=== PATIENT | female | born 1965 | race Caucasian/White ===

== ENCOUNTER → 2016-05-29 | Outpatient (CLI) | payer OTHER ==
--- NOTE | 2016-05-30 13:52 | MM ---
Reason for exam: screening (asymptomatic). Last mammogram was performed 2 years and 7 months ago. History: Patient is postmenopausal. Physical Findings: A clinical breast exam by your physician is recommended on an annual basis and results should be correlated with mammographic findings. MG Screening Mammo w CAD Bilateral CC and MLO view(s) were taken. Prior study comparison: October 12, 2013, bilateral MG screening mammo w CAD. May 29, 2005, left diagnostic mammogram w/CAD. The breast tissue is heterogeneously dense. This may lower the sensitivity of mammography. Finding: There are typically benign round, diffuse and grouped calcifications in both breasts. There is no discrete abnormality. ASSESSMENT: Benign, BI-RAD 2 RECOMMENDATION: Routine screening mammogram of both breasts in 1 year.
== END | disposition home or self-care (01) ==
LOC: RADMAMWWP 10:58
PROVIDERS: ATTEND Family Medicine
DX: Z12.31 Encounter for screening mammogram for malignant neoplasm of breast (principal)

== ENCOUNTER 2016-08-20 08:39 | Emergency (ER) | payer OTHER ==
--- NOTE | 2016-08-20 09:12 | ED ---
Dizziness HPI - General Chief Complaint: Dizziness Stated Complaint: Tingling in face,dizzy Time Seen by Provider: 08/20/16 08:58 Source: patient, family, RN notes reviewed Mode of arrival: wheelchair Limitations: no limitations - History of Present Illness Initial Comments: This is a 51-year-old female who states she had the onset of similar to be flulike symptoms with nausea vomiting 2 days ago she states she also had sweats with the dizziness some fevers and chills some rhinorrhea and a cough. She states this morning she felt profoundly dizzy with some facial numbness and dizziness after she became upright. She does admit to having decreased oral intake she does admit to being at bed rest for last day or so. She has no other complaints at this time she does states she was told she has coronary artery disease. She denies any chest pain at this time. No palpitations. MD Complaint: dizziness, lightheadedness, other - Related Data Home Medications Medication Instructions Recorded Confirmed Cholecalciferol (Vitamin D3) 10,000 unit PO DAILY 12/08/15 08/20/16 [Vitamin D3] Chlorthalidone [Hygroton] 25 mg PO DAILY 08/20/16 08/20/16 FLUoxetine HCL [PROzac] 40 mg PO DAILY 08/20/16 08/20/16 Lisinopril [Prinivil] 5 mg PO DAILY 08/20/16 08/20/16 Phenylephrine/Dm/Acetaminop/GG 30 ml PO BID PRN 08/20/16 08/20/16 [Vicks Dayquil Severe Cold-Flu] Previous Rx's Medication Instructions Recorded Ibuprofen [Motrin] 600 mg PO Q6HR PRN #30 tab 03/07/15 Oseltamivir [Tamiflu] 75 mg PO Q12HR #10 cap 08/20/16 Potassium Chloride [Klor-Con 20] 20 meq PO DAILY #10 tab 08/20/16 Allergies Allergy/AdvReac Type Severity Reaction Status Date / Time No Known Allergies Allergy Verified 08/20/16 10:34 Review of Systems ROS Statement: Those systems with pertinent positive or pertinent negative responses have been documented in the HPI. ROS Other: All systems not noted in ROS Statement are negative. Past Medical History Past Medical History: GERD/Reflux, Hypertension Additional Past Medical History / Comment(s): anemia, MIGRAINE HEADACHES, History of Any Multi-Drug Resistant Organisms: None Reported Past Surgical History: Hysterectomy, Tubal Ligation Additional Past Surgical History / Comment(s): LAPAROSCOPIC EXAM, BUNION LEFT FOOT, Past Anesthesia/Blood Transfusion Reactions: Motion Sickness, Postoperative Nausea & Vomiting (PONV) Past Psychological History: Anxiety, Depression Smoking Status: Never smoker Past Alcohol Use History: None Reported Past Drug Use History: None Reported - Past Family History Mother Family Medical History: No Reported History General Exam - General Exam Comments Initial Comments: This is a well-developed well-nourished awake alert oriented 3 female Limitations: no limitations General appearance: alert, anxious Head exam: Present: atraumatic, normocephalic, normal inspection Eye exam: Present: normal appearance, PERRL, EOMI. Absent: scleral icterus, conjunctival injection, periorbital swelling ENT exam: Present: mucous membranes dry Neck exam: Present: normal inspection. Absent: tenderness, meningismus, lymphadenopathy Respiratory exam: Present: normal lung sounds bilaterally. Absent: respiratory distress, wheezes, rales, rhonchi, stridor Cardiovascular Exam: Present: normal rhythm, tachycardia, normal heart sounds. Absent: systolic murmur, diastolic murmur, rubs, gallop, clicks GI/Abdominal exam: Present: soft, normal bowel sounds. Absent: distended, tenderness, guarding, rebound, rigid Extremities exam: Present: normal inspection, full ROM, normal capillary refill. Absent: tenderness, pedal edema, joint swelling, calf tenderness Back exam: Present: normal inspection Neurological exam: Present: alert, oriented X3, CN II-XII intact Psychiatric exam: Present: normal affect, normal mood Skin exam: Present: warm, dry, intact, normal color. Absent: rash Course Vital Signs 08/20/16 08/20/16 08:52 10:18 Temperature 97.8 F 98.8 F Pulse Rate 108 H 76 Respiratory 20 18 Rate Blood Pressure 128/88 140/78 O2 Sat by Pulse 98 100 Oximetry EKG Findings - EKG Results: EKG: interpreted by MARÍA ELENA, sinus rhythm (Sinus rhythm a rate of 81 a SD interval 150 to QRS duration 90 QT/QTC of 364/422 evidence of biatrial enlargement artifact is present st-t wave changes.) Medical Decision Making - Medical Decision Making Patient did feel improved after initial treatment. She'll be receiving magnesium and potassium supplementation as well as Tamiflu she'll be discharged on appropriate medication she is a follow-up with her doctor return when necessary she was influenza type B positive - Lab Data Result diagrams: 08/20/16 09:15 08/20/16 09:15 Lab Results 08/20/16 08/20/16 08/20/16 Range/Units 09:15 09:15 09:15 WBC 4.4 (3.8-10.6) k/uL RBC 5.33 (3.80-5.40) m/uL Hgb 15.7 (11.4-16.0) gm/dL Hct 44.3 (34.0-46.0) % MCV 83.0 (80.0-100.0) fL MCH 29.4 (25.0-35.0) pg MCHC 35.3 (31.0-37.0) g/dL RDW 12.6 (11.5-15.5) % Plt Count 122 L (150-450) k/uL Neutrophils % 69 % Lymphocytes % 15 % Monocytes % 10 % Eosinophils % 0 % Basophils % 3 % Neutrophils # 3.0 (1.3-7.7) k/uL Lymphocytes # 0.6 L (1.0-4.8) k/uL Monocytes # 0.4 (0-1.0) k/uL Eosinophils # 0.0 (0-0.7) k/uL Basophils # 0.1 (0-0.2) k/uL Sodium 138 (137-145) mmol/L Potassium 2.9 L* (3.5-5.1) mmol/L Chloride 95 L (98-107) mmol/L Carbon Dioxide 26 (22-30) mmol/L Anion Gap 17 mmol/L BUN 17 (7-17) mg/dL Creatinine 0.90 (0.52-1.04) mg/dL Est GFR (MDRD) Af Amer >60 (>60 ml/min/1.73 sqM) Est GFR (MDRD) Non-Af >60 (>60 ml/min/1.73 sqM) Glucose 121 H (74-99) mg/dL Calcium 9.4 (8.4-10.2) mg/dL Magnesium 1.7 (1.6-2.3) mg/dL Total Bilirubin 1.0 (0.2-1.3) mg/dL AST 25 (14-36) U/L ALT 25 (9-52) U/L Alkaline Phosphatase 83 (38-126) U/L Total Creatine Kinase 28 L (30-135) U/L CK-MB (CK-2) <0.2 (0.0-2.4) ng/mL CK-MB (CK-2) Rel Index Troponin I <0.012 (0.000-0.034) ng/mL Total Protein 7.8 (6.3-8.2) g/dL Albumin 4.4 (3.5-5.0) g/dL Influenza Type A RNA (Not Detectd) Influenza Type B (PCR) (Not Detectd) 08/20/16 Range/Units 09:15 WBC (3.8-10.6) k/uL RBC (3.80-5.40) m/uL Hgb (11.4-16.0) gm/dL Hct (34.0-46.0) % MCV (80.0-100.0) fL MCH (25.0-35.0) pg MCHC (31.0-37.0) g/dL RDW (11.5-15.5) % Plt Count (150-450) k/uL Neutrophils % % Lymphocytes % % Monocytes % % Eosinophils % % Basophils % % Neutrophils # (1.3-7.7) k/uL Lymphocytes # (1.0-4.8) k/uL Monocytes # (0-1.0) k/uL Eosinophils # (0-0.7) k/uL Basophils # (0-0.2) k/uL Sodium (137-145) mmol/L Potassium (3.5-5.1) mmol/L Chloride (98-107) mmol/L Carbon Dioxide (22-30) mmol/L Anion Gap mmol/L BUN (7-17) mg/dL Creatinine (0.52-1.04) mg/dL Est GFR (MDRD) Af Amer (>60 ml/min/1.73 sqM) Est GFR (MDRD) Non-Af (>60 ml/min/1.73 sqM) Glucose (74-99) mg/dL Calcium (8.4-10.2) mg/dL Magnesium (1.6-2.3) mg/dL Total Bilirubin (0.2-1.3) mg/dL AST (14-36) U/L ALT (9-52) U/L Alkaline Phosphatase (38-126) U/L Total Creatine Kinase (30-135) U/L CK-MB (CK-2) (0.0-2.4) ng/mL CK-MB (CK-2) Rel Index Troponin I (0.000-0.034) ng/mL Total Protein (6.3-8.2) g/dL Albumin (3.5-5.0) g/dL Influenza Type A RNA Not Detected (Not Detectd) Influenza Type B (PCR) Detected H (Not Detectd) - Radiology Data Radiology results: report reviewed (I did review the imaging and reports no acute findings.), image reviewed Disposition Clinical Impression: Orthostatic hypotension, Influenza B, Dehydration, Hypokalemia, Dizziness Disposition: HOME SELF-CARE Condition: Good Instructions: Dizziness (ED), Influenza (ED), Dehydration (ED), Hypokalemia (ED ) Prescriptions: Oseltamivir [Tamiflu] 75 mg PO Q12HR #10 cap Potassium Chloride [Klor-Con 20] 20 meq PO DAILY #10 tab
[2016-08-20] MEDS: SODIUM CHLORIDE 0.9% 1,000 ML IV STA ×2 (09:23→09:24)
[2016-08-20 09:39] LABS: Basophils # (A) 0.1 k/uL (0-0.2); Basophils % (A) 3 %; CH 29.8; Eosinophils % (A) 0 %; HCT 44.3 % (34.0-46.0); HDW 2.55; HGB 15.7 gm/dL (11.4-16.0); Luc # (Auto) 0.15; Luc % (Auto) 4; Lymphocytes # (A) 0.6 k/uL (1.0-4.8); Lymphocytes % (A) 15 %; MCH 29.4 pg (25.0-35.0); MCHC 35.3 g/dL (31.0-37.0); Mean Platelet Volume 9.8; Monocytes # (A) 0.4 k/uL (0-1.0); Monocytes % (A) 10 %; Neutrophils % (A) 69 %; RBC 5.33 m/uL (3.80-5.40); RDW 12.6 % (11.5-15.5); WBC 4.4 k/uL (3.8-10.6); WBC (Perox) 4.37
--- NOTE | 2016-08-20 09:44 | XR ---
EXAMINATION TYPE: XR chest 2V DATE OF EXAM: 08/20/2016 9:36 AM COMPARISON: None HISTORY: Cough and weakness TECHNIQUE: Frontal and lateral views of the chest are obtained on 3 images. FINDINGS: There is no focal air space opacity, pleural effusion, or pneumothorax seen. The cardiac silhouette size is within normal limits. There are overlying cardiac leads. The osseous structures a re intact. IMPRESSION: No acute cardiopulmonary process.
[2016-08-20 09:55] LABS: Creatine Kinase 28 U/L (30-135)
[2016-08-20 09:56] LABS: ALT 25 U/L (9-52); AST 25 U/L (14-36); Alkaline Phosphatase 83 U/L (38-126); Anion Gap 17 mmol/L; Blood Urea Nitrogen 17 mg/dL (7-17); Calcium 9.4 mg/dL (8.4-10.2); Carbon Dioxide 26 mmol/L (22-30); Chloride 95 mmol/L (98-107); Glucose 121 mg/dL (74-99); Magnesium 1.7 mg/dL (1.6-2.3); Non-African American GFR(MDRD) >60 (>60 ml/min/1.73 sqM); Sodium 138 mmol/L (137-145); Total Protein 7.8 g/dL (6.3-8.2)
[2016-08-20 10:04] LABS: Potassium 2.9 mmol/L (3.5-5.1)
[2016-08-20 10:07] LABS: Creatine Kinase MB <0.2 ng/mL (0.0-2.4); Troponin I <0.012 ng/mL (0.000-0.034)
[2016-08-20] MEDS: MAGNESIUM SULFATE-D5W PMX 1 GM in DEXTROSE/WATER 1 100ML.BAG IVPB ONE (10:37)
[2016-08-20] MEDS: SODIUM CHLORIDE 0.9% 500 ML IV STA (10:42)
[2016-08-20] MEDS: OSELTAMIVIR 75 MG CAP PO STA (10:43)
[2016-08-20] MEDS: POTASSIUM CHLORIDE 20 MEQ, LIDOCAINE 2% INJ 20 MG in SODIUM CHLORIDE 0.9% 100 ML IVPB ONE (11:44)
[2016-08-20 12:00] VITALS: RESP 17
[2016-08-20 13:59] VITALS: BP 138/63; PULSE 63; TEMP 98.7
== END 2016-08-20 14:09 | disposition home or self-care (01) ==
LOC: EC 08:39
DX: I95.1 Orthostatic hypotension (principal); J10.1 Influenza due to other identified influenza virus with other respiratory manifestations; E86.0 Dehydration; E87.6 Hypokalemia; R00.0 Tachycardia, unspecified; I10 Essential (primary) hypertension; F41.9 Anxiety disorder, unspecified; F32.9 Major depressive disorder, single episode, unspecified; I25.10 Atherosclerotic heart disease of native coronary artery without angina pectoris; Z79.899 Other long term (current) drug therapy; Z86.69 Personal history of other diseases of the nervous system and sense organs
CPT/HCPCS: 99284; 96365; 96367; 96366; 96361; 36415; 93005; 80053; 82550; 82553; 83735; 84484; 85025; 87502; 71020; J2001; J3480; J3475

== ENCOUNTER → 2016-11-14 | Outpatient (CLI) | payer OTHER ==
[2016-11-14 13:36] LABS: Non-African American GFR(MDRD) >60 (>60 ml/min/1.73 sqM)
== END | disposition home or self-care (01) ==
LOC: LABWHC1 13:15
PROVIDERS: ATTEND Family Medicine
DX: M54.5 Low back pain (principal)
CPT/HCPCS: 36415; 82565

== ENCOUNTER → 2016-11-15 | Outpatient (CLI) | payer OTHER ==
--- NOTE | 2016-11-15 09:35 | MR ---
MR lumbar spine wo/w con low back pain x3 weeks MultiHance Multiplanar, multiecho imaging of the lumbar spine was obtained without contrast on a 3 Josy magnet. REFERENCE:None. FINDINGS: Paraspinal soft tissues are normal. Vertebral body height and alignment are maintained. Cord signal is maintained. The conus ends normally at the level of the mid body of L2. At T12-L1, the intervertebral foramina are well maintained. There is no significant compressive disco selina. There is mild capsulitis within the facets. At L1-2, the intervertebral foramina are well maintained. There is no significant compressive discopa thy. There is mild hypertrophic change and capsulitis within the facets. At L2-3, the intervertebral foramina are well maintained. There is no significant compressive discopa thy. There is mild hypertrophic change and capsulitis within the facets. At L3-4, the intervertebral foramina are well maintained. There is a minimal bilobed disc displacemen t. There is mild hypertrophic change and capsulitis within the facets. At L4-5,there is a left paracentral disc protrusion/extrusion extending into the intervertebral candelario en on the left and causing significant intervertebral foraminal narrowing on the left. There is a dif fuse disc displacement. There is hypertrophic change and capsulitis within the facets. At L5-S1, the intervertebral foramina are well maintained. There is a diffuse disc displacement. Ther e are hypertrophic changes in the facets. IMPRESSION: 1. LEFT PARACENTRAL DISC PROTRUSION/EXTRUSION, L4-5 CAUSING LEFT-SIDED INTERVERTEBRAL FORAMINAL NARRO WING AND IMPINGING UPON THE EXITING L4 NERVE ROOT AND ALSO THE TRAVERSING L5 NERVE ROOT. 2. DIFFUSE FACET ARTHROPATHY.
== END | disposition home or self-care (01) ==
LOC: RADMRIMAIN 08:43
PROVIDERS: ATTEND Family Medicine
DX: M51.26 Other intervertebral disc displacement, lumbar region (principal); M99.73 Connective tissue and disc stenosis of intervertebral foramina of lumbar region; M46.96 Unspecified inflammatory spondylopathy, lumbar region
CPT/HCPCS: 72158; A9577

== ENCOUNTER 2017-06-21 15:33 | Emergency (ER) | payer OTHER ==
--- NOTE | 2017-06-21 16:41 | ED ---
General Adult HPI - General Chief complaint: Extremity Injury, Upper Stated complaint: facial & arm pain Time Seen by Provider: 06/21/17 16:23 Source: patient, RN notes reviewed Mode of arrival: ambulatory Limitations: no limitations - History of Present Illness Initial comments: Patient 52-year-old female who presents emergency room today with a chief complaint of symptoms of nausea vomiting diarrhea that started 4 days ago. She states that she had the symptoms for the first 2 days. States they have improved. She states she is feeling a numbness and tingling sensation to her face bilaterally and upper arms bilaterally that comes and goes. Currently not having the numbness and tingling at this time. She doesn't that she feels arm around the elbow and biceps area. Patient denies any injury or trauma. Also missed that she's felt some bruising sensation to her chest wall bilaterally. She again denies any injury. She denies any other complaints or symptoms at this time. Patient denies any recent fever, chills, shortness of breath, chest pain, back pain, dysuria or hematuria, constipation, headaches or visual changes , or any other complaints. - Related Data Home Medications Medication Instructions Recorded Confirmed Chlorthalidone [Hygroton] 25 mg PO DAILY 08/20/16 06/21/17 FLUoxetine HCL [PROzac] 40 mg PO DAILY 08/20/16 06/21/17 Ergocalciferol (Vitamin D2) 50,000 unit PO Q30D 06/21/17 06/21/17 [Vitamin D2] Omeprazole [PriLOSEC] 20 mg PO AC-BID 06/21/17 06/21/17 amLODIPine [Norvasc] 5 mg PO DAILY 06/21/17 06/21/17 busPIRone HCl [Buspar] 10 mg PO DAILY 06/21/17 06/21/17 Previous Rx's Medication Instructions Recorded Ibuprofen [Motrin] 600 mg PO Q6HR PRN #30 tab 03/07/15 Allergies Allergy/AdvReac Type Severity Reaction Status Date / Time No Known Allergies Allergy Verified 06/21/17 16:37 Review of Systems ROS Statement: Those systems with pertinent positive or pertinent negative responses have been documented in the HPI. ROS Other: All systems not noted in ROS Statement are negative. Past Medical History Past Medical History: GERD/Reflux, Hypertension Additional Past Medical History / Comment(s): anemia, MIGRAINE HEADACHES, vertigo History of Any Multi-Drug Resistant Organisms: None Reported Past Surgical History: Hysterectomy, Tubal Ligation Additional Past Surgical History / Comment(s): LAPAROSCOPIC EXAM, BUNION LEFT FOOT, Past Anesthesia/Blood Transfusion Reactions: Motion Sickness, Postoperative Nausea & Vomiting (PONV) Past Psychological History: Anxiety, Depression Smoking Status: Never smoker Past Alcohol Use History: None Reported Past Drug Use History: None Reported - Past Family History Mother Family Medical History: No Reported History General Exam - General Exam Comments Initial Comments: General: The patient is awake and alert, in no distress, and does not appear acutely ill. Eye: Pupils are equal, round and reactive to light, extra-ocular movements are intact. No nystagmus. There is normal conjunctiva bilaterally. No signs of icterus. Ears, nose, mouth and throat: There are moist mucous membranes and no oral lesions. Neck: The neck is supple, there is no tenderness or JVD. Cardiovascular: There is a regular rate and rhythm. No murmur, rub or gallop is appreciated. Respiratory: Lungs are clear to auscultation, respirations are non-labored, breath sounds are equal. No wheezes, stridor, rales, or rhonchi. Gastrointestinal: Soft, non-distended, non-tender abdomen without masses or organomegaly noted. There is no rebound or guarding present. No CVA tenderness. Musculoskeletal: Normal ROM, no tenderness. Strength 5/5. Sensation intact. Pulses equal bilaterally 2+. Neurological: A&O x 3. CN II-XII intact, There are no obvious motor or sensory deficits. Coordination appears grossly intact. Speech is normal. Skin: Skin is warm and dry and no rashes or lesions are noted. Psychiatric: Cooperative, appropriate mood & affect, normal judgment. Limitations: no limitations Course Vital Signs 06/21/17 06/21/17 15:44 16:50 Temperature 96.4 F L Pulse Rate 93 71 Respiratory 18 16 Rate Blood Pressure 135/71 148/85 O2 Sat by Pulse 100 96 Oximetry Medical Decision Making - Medical Decision Making Patient reexamined at this time shows no signs of distress. Patient's resting comfortably. Patient's EKG shows no acute changes. Patient's labs been reviewed are unremarkable. Patient is resting relatively. Has had similar symptoms in the past at this time feeling better after IV fluids. Patient will be discharged to follow-up family doctor tomorrow. Advised increased fluids. Advised return if symptoms increase or worsen appropriate concerns. - Lab Data Result diagrams: 06/21/17 16:45 06/21/17 16:45 Lab Results 06/21/17 06/21/17 06/21/17 Range/Units 16:45 16:45 16:45 WBC 6.8 (3.8-10.6) k/uL RBC 5.20 (3.80-5.40) m/uL Hgb 15.3 (11.4-16.0) gm/dL Hct 44.4 (34.0-46.0) % MCV 85.4 (80.0-100.0) fL MCH 29.5 (25.0-35.0) pg MCHC 34.5 (31.0-37.0) g/dL RDW 12.8 (11.5-15.5) % Plt Count 187 (150-450) k/uL Neutrophils % 68 % Lymphocytes % 20 % Monocytes % 8 % Eosinophils % 1 % Basophils % 0 % Neutrophils # 4.6 (1.3-7.7) k/uL Lymphocytes # 1.4 (1.0-4.8) k/uL Monocytes # 0.5 (0-1.0) k/uL Eosinophils # 0.1 (0-0.7) k/uL Basophils # 0.0 (0-0.2) k/uL PT (9.0-12.0) sec INR (<1.2) APTT (22.0-30.0) sec Sodium 142 (137-145) mmol/L Potassium 3.5 (3.5-5.1) mmol/L Chloride 98 (98-107) mmol/L Carbon Dioxide 30 (22-30) mmol/L Anion Gap 14 mmol/L BUN 14 (7-17) mg/dL Creatinine 0.83 (0.52-1.04) mg/dL Est GFR (MDRD) Af Amer >60 (>60 ml/min/1.73 sqM) Est GFR (MDRD) Non-Af >60 (>60 ml/min/1.73 sqM) Glucose 118 H (74-99) mg/dL Calcium 9.9 (8.4-10.2) mg/dL Total Bilirubin 1.1 (0.2-1.3) mg/dL AST 21 (14-36) U/L ALT 21 (9-52) U/L Alkaline Phosphatase 87 (38-126) U/L Total Creatine Kinase 27 L (30-135) U/L CK-MB (CK-2) <0.2 (0.0-2.4) ng/mL CK-MB (CK-2) Rel Index Troponin I <0.012 (0.000-0.034) ng/mL Total Protein 7.4 (6.3-8.2) g/dL Albumin 4.3 (3.5-5.0) g/dL 06/21/17 Range/Units 16:45 WBC (3.8-10.6) k/uL RBC (3.80-5.40) m/uL Hgb (11.4-16.0) gm/dL Hct (34.0-46.0) % MCV (80.0-100.0) fL MCH (25.0-35.0) pg MCHC (31.0-37.0) g/dL RDW (11.5-15.5) % Plt Count (150-450) k/uL Neutrophils % % Lymphocytes % % Monocytes % % Eosinophils % % Basophils % % Neutrophils # (1.3-7.7) k/uL Lymphocytes # (1.0-4.8) k/uL Monocytes # (0-1.0) k/uL Eosinophils # (0-0.7) k/uL Basophils # (0-0.2) k/uL PT 9.8 (9.0-12.0) sec INR 1.0 (<1.2) APTT 22.7 (22.0-30.0) sec Sodium (137-145) mmol/L Potassium (3.5-5.1) mmol/L Chloride (98-107) mmol/L Carbon Dioxide (22-30) mmol/L Anion Gap mmol/L BUN (7-17) mg/dL Creatinine (0.52-1.04) mg/dL Est GFR (MDRD) Af Amer (>60 ml/min/1.73 sqM) Est GFR (MDRD) Non-Af (>60 ml/min/1.73 sqM) Glucose (74-99) mg/dL Calcium (8.4-10.2) mg/dL Total Bilirubin (0.2-1.3) mg/dL AST (14-36) U/L ALT (9-52) U/L Alkaline Phosphatase (38-126) U/L Total Creatine Kinase (30-135) U/L CK-MB (CK-2) (0.0-2.4) ng/mL CK-MB (CK-2) Rel Index Troponin I (0.000-0.034) ng/mL Total Protein (6.3-8.2) g/dL Albumin (3.5-5.0) g/dL Disposition Clinical Impression: Nausea vomiting and diarrhea, Paresthesia Disposition: HOME SELF-CARE Condition: Good Instructions: Paresthesia (ED) Additional Instructions: Please follow-up with family doctor in the next 2 days. Please return to emergency room if the symptoms increase or worsen or for any other concerns. Referrals: Chaparro Horne MD [Primary Care Provider] - 1-2 days Time of Disposition: 18:27
[2017-06-21 16:51] VITALS: RESP 16
[2017-06-21 17:10] LABS: ALT 21 U/L (9-52); AST 21 U/L (14-36); Albumin 4.3 g/dL (3.5-5.0); Alkaline Phosphatase 87 U/L (38-126); Anion Gap 14 mmol/L; Blood Urea Nitrogen 14 mg/dL (7-17); Calcium 9.9 mg/dL (8.4-10.2); Carbon Dioxide 30 mmol/L (22-30); Chloride 98 mmol/L (98-107); Glucose 118 mg/dL (74-99); Potassium 3.5 mmol/L (3.5-5.1); Sodium 142 mmol/L (137-145); Total Bilirubin 1.1 mg/dL (0.2-1.3); Total Protein 7.4 g/dL (6.3-8.2)
--- NOTE | 2017-06-21 17:10 | XR ---
EXAMINATION TYPE: XR chest 2V DATE OF EXAM: 06/21/2017 COMPARISON: 08/20/2016 HISTORY: Nausea and vomiting TECHNIQUE: Frontal and lateral views of the chest are obtained. FINDINGS: There is no focal air space opacity, pleural effusion, or pneumothorax seen. The cardiac silhouette size is within normal limits. The osseous structures are intact. Minimal multilevel dege nerative changes of the thoracic spine and acromio clavicular joint on the right are seen. IMPRESSION: No acute cardiopulmonary process.
[2017-06-21 17:25] LABS: Basophils % (A) 0 %; Creatine Kinase 27 U/L (30-135); Eosinophils # (A) 0.1 k/uL (0-0.7); Eosinophils % (A) 1 %; HCT 44.4 % (34.0-46.0); HGB 15.3 gm/dL (11.4-16.0); Lymphocytes # (A) 1.4 k/uL (1.0-4.8); Lymphocytes % (A) 20 %; MCH 29.5 pg (25.0-35.0); MCHC 34.5 g/dL (31.0-37.0); MCV 85.4 fL (80.0-100.0); Mean Platelet Volume 8.5; Monocytes # (A) 0.5 k/uL (0-1.0); Monocytes % (A) 8 %; Neutrophils # (A) 4.6 k/uL (1.3-7.7); Neutrophils % (A) 68 %; Platelet Count 187 k/uL (150-450); RDW 12.8 % (11.5-15.5); WBC 6.8 k/uL (3.8-10.6)
[2017-06-21 17:29] LABS: Partial Thromboplastin Time 22.7 sec (22.0-30.0)
[2017-06-21 17:31] LABS: Prothrombin Time 9.8 sec (9.0-12.0)
[2017-06-21] MEDS ORDERED: SODIUM CHLORIDE 0.9% 1,000 ML IV STA (17:35)
[2017-06-21 17:37] LABS: Creatine Kinase MB <0.2 ng/mL (0.0-2.4); Troponin I <0.012 ng/mL (0.000-0.034)
[2017-06-21 18:35] VITALS: BP 157/73; PULSE 57; TEMP 98.4
== END 2017-06-21 18:55 | disposition home or self-care (01) ==
LOC: EC 15:33
DX: R19.7 Diarrhea, unspecified (principal); R11.2 Nausea with vomiting, unspecified; R20.2 Paresthesia of skin; I10 Essential (primary) hypertension; K21.9 Gastro-esophageal reflux disease without esophagitis; F32.9 Major depressive disorder, single episode, unspecified; F41.9 Anxiety disorder, unspecified; Z79.899 Other long term (current) drug therapy; Z86.69 Personal history of other diseases of the nervous system and sense organs
CPT/HCPCS: 36415; 71046; 80053; 82550; 82553; 84484; 85025; 85610; 85730; 93005; 96360; 99284

== ENCOUNTER → 2017-07-10 | Outpatient (CLI) | payer OTHER ==
--- NOTE | 2017-07-12 21:24 | MR ---
EXAMINATION TYPE: MR brain wo/w con DATE OF EXAM: 07/10/2017 COMPARISON: NONE HISTORY: 52-year-old female Tingling in face / Confusion TECHNIQUE: Multiplanar, multisequence images of the brain and brainstem were acquired before and aft er administration of 7.5 mL IV Gadavist. Diffusion weighted imaging is performed. FINDINGS: No evidence for acute infarction, hemorrhage, mass, mass effect, midline shift, herniation, effacemen t of basal cisterns, or extra-axial fluid collection. The ventricles and sulci are age-appropriate. Major intracranial flow voids are intact. T2/FLAIR weighted sequences show a solitary nonspecific 3 mm punctate focus of bright signal in the l eft parietal subcortical region. Midline structures demonstrate normal morphology. The craniocervical junction is normal. Post contrast images demonstrate no evidence of pathologic enhancement. Dural venous sinuses are pat ent. Mild mucosal thickening within the ethmoid air cells. Partial the left mastoid air cells. Globes are intact. IMPRESSION: 1. No acute intracranial abnormality seen. 2. Some trapped fluid in the left mastoid air cells. Correlate for any mastoid pain to exclude mastoi ditis.
== END | disposition home or self-care (01) ==
LOC: RADMRIMAIN 10:42
PROVIDERS: ATTEND Family Medicine
DX: H74.8X2 Other specified disorders of left middle ear and mastoid (principal); R20.2 Paresthesia of skin; R41.0 Disorientation, unspecified; Z86.59 Personal history of other mental and behavioral disorders
CPT/HCPCS: 70553; A9581

== ENCOUNTER → 2017-07-14 | Outpatient (CLI) | payer OTHER ==
--- NOTE | 2017-07-15 09:31 | MM ---
Reason for exam: screening (asymptomatic). Last mammogram was performed 1 year and 1 month ago. History: Patient is postmenopausal. Physical Findings: A clinical breast exam by your physician is recommended on an annual basis and results should be correlated with mammographic findings. MG Screening Mammo w CAD Bilateral CC and MLO view(s) were taken. Prior study comparison: May 29, 2016, bilateral MG screening mammo w CAD. October 12, 2013, bilateral MG screening mammo w CAD. The breast tissue is heterogeneously dense. This may lower the sensitivity of mammography. Finding: There are typically benign round, grouped/clustered calcifications in the left breast. There is no discrete abnormality. ASSESSMENT: Benign, BI-RAD 2 RECOMMENDATION: Routine screening mammogram of both breasts in 1 year.
== END ==
LOC: RADMAMWWP 09:59
PROVIDERS: ATTEND Family Medicine
DX: Z12.31 Encounter for screening mammogram for malignant neoplasm of breast (principal)
CPT/HCPCS: 77067

== ENCOUNTER 2017-12-27 18:51 | Observation (INO) | payer OTHER ==
[2017-12-27] MEDS ORDERED: NITROGLYCERIN OINT 1 INCH/GM PACKET TOPICAL STA (19:33)
[2017-12-27] MEDS ORDERED: ASPIRIN 81 MG PO STA (19:33)
--- NOTE | 2017-12-27 19:37 | ED ---
General Adult HPI - General Chief complaint: Chest Pain Stated complaint: CHEST DISCOMFORT Time Seen by Provider: 12/27/17 19:07 Source: patient, RN notes reviewed Mode of arrival: ambulatory Limitations: no limitations - History of Present Illness Initial comments: Patient is a pleasant 52-year-old female presenting to the emergency Department with chest discomfort. Onset of symptoms was yesterday after doing some cleaning. No history of similar symptoms previously. Discomfort is mild at this time. Patient does have some associated nausea. No associated dyspnea or diaphoresis. Patient also has some discomfort of her left neck. Patient states she noticed the neck discomfort she woke this morning. Patient states it hurts to push on her neck or turn her neck. Discomfort is left anterior neck. Chest discomfort is left sternal region. Patient did have some left calf discomfort earlier this morning however that resolved with ibuprofen. - Related Data Home Medications Medication Instructions Recorded Confirmed Chlorthalidone [Hygroton] 25 mg PO DAILY 08/20/16 06/21/17 FLUoxetine HCL [PROzac] 40 mg PO DAILY 08/20/16 06/21/17 Ergocalciferol (Vitamin D2) 50,000 unit PO Q30D 06/21/17 06/21/17 [Vitamin D2] Omeprazole [PriLOSEC] 20 mg PO AC-BID 06/21/17 06/21/17 amLODIPine [Norvasc] 5 mg PO DAILY 06/21/17 06/21/17 busPIRone HCl [Buspar] 10 mg PO DAILY 06/21/17 06/21/17 Previous Rx's Medication Instructions Recorded Ibuprofen [Motrin] 600 mg PO Q6HR PRN #30 tab 03/07/15 Allergies Allergy/AdvReac Type Severity Reaction Status Date / Time No Known Allergies Allergy Verified 12/27/17 18:55 Review of Systems ROS Statement: Those systems with pertinent positive or pertinent negative responses have been documented in the HPI. ROS Other: All systems not noted in ROS Statement are negative. Constitutional: Denies: fever Eyes: Denies: eye pain ENT: Denies: ear pain Respiratory: Denies: dyspnea Cardiovascular: Reports: chest pain Endocrine: Denies: fatigue Gastrointestinal: Reports: nausea. Denies: abdominal pain Genitourinary: Denies: dysuria Musculoskeletal: Denies: back pain Skin: Denies: rash Neurological: Denies: weakness Past Medical History Past Medical History: GERD/Reflux, Hypertension Additional Past Medical History / Comment(s): anemia, MIGRAINE HEADACHES, vertigo History of Any Multi-Drug Resistant Organisms: None Reported Past Surgical History: Hysterectomy, Tubal Ligation Additional Past Surgical History / Comment(s): LAPAROSCOPIC EXAM, BUNION LEFT FOOT, Past Anesthesia/Blood Transfusion Reactions: Motion Sickness, Postoperative Nausea & Vomiting (PONV) Past Psychological History: Anxiety, Depression Smoking Status: Never smoker Past Alcohol Use History: None Reported Past Drug Use History: None Reported - Past Family History Mother Family Medical History: No Reported History General Exam Limitations: no limitations General appearance: alert, in no apparent distress Head exam: Present: atraumatic Eye exam: Present: normal appearance, PERRL ENT exam: Present: normal oropharynx Neck exam: Present: tenderness (There is tenderness specifically to the left sternal cleidomastoid muscle.) Respiratory exam: Present: normal lung sounds bilaterally. Absent: chest wall tenderness Cardiovascular Exam: Present: regular rate, normal rhythm Expanded Peripheral pulses: 2+: Radial (R), Radial (L), Posterior Tibialis (R), Posterior Tibialis (L) GI/Abdominal exam: Present: soft. Absent: tenderness Extremities exam: Present: normal inspection. Absent: pedal edema, calf tenderness Neurological exam: Present: alert Psychiatric exam: Present: normal affect, normal mood Skin exam: Present: normal color Course Vital Signs 12/27/17 18:53 Temperature 98.2 F Pulse Rate 81 Respiratory 18 Rate Blood Pressure 149/104 O2 Sat by Pulse 99 Oximetry EKG Findings - EKG Comments: EKG Findings:: Normal sinus rhythm 69. AZ 136. QRS 86. QT 398. QTC 426. Normal axis. Normal QRS. Borderline ST depression in lead 2. Medical Decision Making - Medical Decision Making Patient reevaluated and resting comfortably in bed. Symptoms very mild at this time. Patient updated on results and plan. Case was discussed in detail with Dr. Horne, who will admit his patient. - Lab Data Result diagrams: 12/27/17 19:20 12/27/17 19:20 Lab Results 12/27/17 12/27/17 12/27/17 Range/Units 19:20 19:20 19:20 WBC 8.2 (3.8-10.6) k/uL RBC 5.00 (3.80-5.40) m/uL Hgb 14.3 (11.4-16.0) gm/dL Hct 42.2 (34.0-46.0) % MCV 84.4 (80.0-100.0) fL MCH 28.6 (25.0-35.0) pg MCHC 33.9 (31.0-37.0) g/dL RDW 13.5 (11.5-15.5) % Plt Count 186 (150-450) k/uL Neutrophils % 65 % Lymphocytes % 26 % Monocytes % 5 % Eosinophils % 1 % Basophils % 0 % Neutrophils # 5.3 (1.3-7.7) k/uL Lymphocytes # 2.1 (1.0-4.8) k/uL Monocytes # 0.4 (0-1.0) k/uL Eosinophils # 0.1 (0-0.7) k/uL Basophils # 0.0 (0-0.2) k/uL PT (9.0-12.0) sec INR (<1.2) APTT (22.0-30.0) sec D-Dimer (<0.60) mg/L FEU Sodium 139 (137-145) mmol/L Potassium 3.3 L (3.5-5.1) mmol/L Chloride 102 (98-107) mmol/L Carbon Dioxide 27 (22-30) mmol/L Anion Gap 10 mmol/L BUN 15 (7-17) mg/dL Creatinine 0.97 (0.52-1.04) mg/dL Est GFR (CKD-EPI)AfAm 77 (>60 ml/min/1.73 sqM) Est GFR (CKD-EPI)NonAf 67 (>60 ml/min/1.73 sqM) Glucose 115 H (74-99) mg/dL Calcium 9.4 (8.4-10.2) mg/dL Magnesium 1.9 (1.6-2.3) mg/dL Total Bilirubin 1.3 (0.2-1.3) mg/dL AST 23 (14-36) U/L ALT 21 (9-52) U/L Alkaline Phosphatase 80 (38-126) U/L Total Creatine Kinase 39 (30-135) U/L CK-MB (CK-2) 0.4 (0.0-2.4) ng/mL CK-MB (CK-2) Rel Index 1.0 Troponin I <0.012 (0.000-0.034) ng/mL Total Protein 7.1 (6.3-8.2) g/dL Albumin 4.1 (3.5-5.0) g/dL 12/27/17 Range/Units 19:20 WBC (3.8-10.6) k/uL RBC (3.80-5.40) m/uL Hgb (11.4-16.0) gm/dL Hct (34.0-46.0) % MCV (80.0-100.0) fL MCH (25.0-35.0) pg MCHC (31.0-37.0) g/dL RDW (11.5-15.5) % Plt Count (150-450) k/uL Neutrophils % % Lymphocytes % % Monocytes % % Eosinophils % % Basophils % % Neutrophils # (1.3-7.7) k/uL Lymphocytes # (1.0-4.8) k/uL Monocytes # (0-1.0) k/uL Eosinophils # (0-0.7) k/uL Basophils # (0-0.2) k/uL PT 9.9 (9.0-12.0) sec INR 1.0 (<1.2) APTT 25.0 (22.0-30.0) sec D-Dimer <0.17 (<0.60) mg/L FEU Sodium (137-145) mmol/L Potassium (3.5-5.1) mmol/L Chloride (98-107) mmol/L Carbon Dioxide (22-30) mmol/L Anion Gap mmol/L BUN (7-17) mg/dL Creatinine (0.52-1.04) mg/dL Est GFR (CKD-EPI)AfAm (>60 ml/min/1.73 sqM) Est GFR (CKD-EPI)NonAf (>60 ml/min/1.73 sqM) Glucose (74-99) mg/dL Calcium (8.4-10.2) mg/dL Magnesium (1.6-2.3) mg/dL Total Bilirubin (0.2-1.3) mg/dL AST (14-36) U/L ALT (9-52) U/L Alkaline Phosphatase (38-126) U/L Total Creatine Kinase (30-135) U/L CK-MB (CK-2) (0.0-2.4) ng/mL CK-MB (CK-2) Rel Index Troponin I (0.000-0.034) ng/mL Total Protein (6.3-8.2) g/dL Albumin (3.5-5.0) g/dL - Radiology Data Radiology results: report reviewed (Ultrasound left leg is somewhat limited. No visualized DVT.), image reviewed (Chest x-ray shows no acute process.) Disposition Clinical Impression: Chest pain Disposition: ADMITTED IP TO THIS HOSP Is patient prescribed a controlled substance at d/c from ED?: No Referrals: Chaparro Horne MD [Primary Care Provider] - 1-2 days Decision Time: 22:05
[2017-12-27 19:43] LABS: Basophils % (A) 0 %; Eosinophils # (A) 0.1 k/uL (0-0.7); Eosinophils % (A) 1 %; HCT 42.2 % (34.0-46.0); HGB 14.3 gm/dL (11.4-16.0); Lymphocytes # (A) 2.1 k/uL (1.0-4.8); Lymphocytes % (A) 26 %; MCH 28.6 pg (25.0-35.0); MCHC 33.9 g/dL (31.0-37.0); MCV 84.4 fL (80.0-100.0); Mean Platelet Volume 7.7; Monocytes # (A) 0.4 k/uL (0-1.0); Monocytes % (A) 5 %; Neutrophils # (A) 5.3 k/uL (1.3-7.7); Neutrophils % (A) 65 %; Platelet Count 186 k/uL (150-450); RDW 13.5 % (11.5-15.5); WBC 8.2 k/uL (3.8-10.6)
[2017-12-27 19:54] LABS: Albumin 4.1 g/dL (3.5-5.0); Calcium 9.4 mg/dL (8.4-10.2); Magnesium 1.9 mg/dL (1.6-2.3); Potassium 3.3 mmol/L (3.5-5.1); Total Bilirubin 1.3 mg/dL (0.2-1.3); Total Protein 7.1 g/dL (6.3-8.2)
[2017-12-27 19:57] LABS: Creatine Kinase 39 U/L (30-135)
[2017-12-27 20:10] LABS: Creatine Kinase MB 0.4 ng/mL (0.0-2.4); Troponin I <0.012 ng/mL (0.000-0.034)
[2017-12-27 20:22] LABS: D-Dimer <0.17 mg/L FEU (<0.60); Prothrombin Time 9.9 sec (9.0-12.0)
--- NOTE | 2017-12-27 20:40 | US ---
EXAMINATION TYPE: US venous doppler duplex LE LT DATE OF EXAM: 12/27/2017 8:09 PM COMPARISON: NONE CLINICAL HISTORY: 52-year-old female Pain, swelling SIDE PERFORMED: Left TECHNIQUE: The lower extremity deep venous system is examined utilizing real time linear array sonog duke with graded compression, doppler sonography and color-flow sonography. FINDINGS: VESSELS IMAGED: External Iliac Vein (EIV) Common Femoral Vein Deep Femoral Vein Greater Saphenous Vein * Femoral Vein Popliteal Vein Small Saphenous Vein * Proximal Calf Veins - limited view due to swelling (* superficial vessels) Pediatric Orthodontist notes: Soft tissue edema, difficult to visualize without color doppler. Left Leg: Negative for DVT IMPRESSION: Some limitation in assessment of the upper calf veins due to soft tissue swelling. No visualized DVT in the left lower extremity imaged down to the upper calf.
--- NOTE | 2017-12-27 20:41 | XR ---
EXAMINATION TYPE: XR chest 2V DATE OF EXAM: 12/27/2017 COMPARISON: 06/21/2017 HISTORY: 52-year-old female with chest pain TECHNIQUE: PA and lateral views FINDINGS: The heart is normal size. Aorta and pulmonary vasculature within normal limits. No consolidation or p leural effusion. IMPRESSION: No acute cardiopulmonary process.
[2017-12-27] MEDS ORDERED: NITROGLYCERIN SL TABS 0.4 MG TAB SUBLINGUAL PRN (22:05)
[2017-12-27 23:29] LABS: Cholesterol 213 mg/dL (<200); HDL Cholesterol 53 mg/dL (40-60); LDL Cholesterol,Calculated 132 mg/dL (0-99); Triglycerides 140 mg/dL (<150)
[2017-12-28] MEDS: NITROGLYCERIN OINT 1 INCH/GM PACKET TOPICAL SCH ×3 (01:18→12:10)
[2017-12-28 01:55] LABS: Creatine Kinase 38 U/L (30-135)
[2017-12-28 02:08] LABS: Creatine Kinase MB 0.3 ng/mL (0.0-2.4); Troponin I <0.012 ng/mL (0.000-0.034)
[2017-12-28 07:59] LABS: Creatine Kinase 31 U/L (30-135)
[2017-12-28 08:53] LABS: Creatine Kinase MB <0.2 ng/mL (0.0-2.4); Troponin I <0.012 ng/mL (0.000-0.034)
[2017-12-28] MEDS ORDERED: ASPIRIN 325 MG TAB PO SCH (09:00)
[2017-12-28] MEDS ORDERED: IBUPROFEN 600 MG TAB PO PRN (11:06)
[2017-12-28 12:16] VITALS: BP 133/72; PULSE 63; RESP 16; TEMP 97.7
[2017-12-28] MEDS ORDERED: PANTOPRAZOLE 40 MG TABLET PO SCH (17:30)
--- NOTE | 2017-12-28 18:26 | HP ---
HISTORY AND PHYSICAL CHIEF COMPLAINT: Chest pain. HISTORY OF PRESENT ILLNESS: This is another admission for this 52-year-old white female. She presented to the emergency room with chest pain; she thought it was probably in the left anterior chest wall. She had been doing some strenuous work around the house. She was admitted for observation. REVIEW OF SYSTEMS: She has had no neurologic problems, change in vision or hearing, cough, hemoptysis, shortness of breath, hypertension, heart disease, angina, infarctions, murmurs, rheumatic fever, abdominal pain, vomiting, diarrhea, melena, hematochezia, jaundice, hepatitis, cirrhosis, etc. She has had no hematuria, renal failure, diabetes, etc. Past medical history, family history, and personal and social histories reveal that she has had some problems with hypertension in the past. She is ALLERGIC TO CIPRO. She has been on: 1. Motrin. 2. Buspirone 10 mg once a day. 3. Omeprazole 20 mg once a day. 4. Amlodipine 5 mg once a day. 5. Chlorthalidone 25 mg once a day. 6. Prozac 40 mg once a day. 7. Vitamin D. The remainder of her history is unremarkable. She has never smoked. PHYSICAL EXAMINATION: Blood pressure is 114/80, pulse 60, respirations 16. She is afebrile. In general she appeared to be well developed well nourished, in no acute distress. Skin color is normal. Skin is warm and dry. Lymph nodes are not enlarged. Head, ears, eyes, nose, mouth and throat were normal. Neck veins were not distended. Thyroid is not enlarged. Chest is clear. Cardiac exam is normal. The abdomen is soft, nontender. EXTREMITIES: Normal. Neurologically she is intact. She is a little bit tender in the left anterior chest area just off the left sternal border. IMPRESSION: 1. Chest pain, non-cardiac. 2. Probable costochondritis. 3. Hypokalemia. 4. History of hypertension. PLAN: 1. Bed rest. 2. Correct hypokalemia. 3. Serial EKGs and enzymes. MMODL / IJN: [id number] /
[2017-12-28] MEDS ORDERED: busPIRone HCl 10 MG TAB PO SCH (21:00)
[2017-12-29] MEDS ORDERED: CHLORTHALIDONE 25 MG TAB PO SCH (09:00)
[2018-01-23] MEDS ORDERED: ERGOCALCIFEROL 50,000 UNIT CAP PO SCH (12:00)
== END 2017-12-28 15:14 | disposition home or self-care (01) ==
LOC: EC 18:51 → 3OBS 22:06
PROVIDERS: ADMIT Family Medicine; ATTEND Family Medicine
DX: R07.89 Other chest pain (principal); Z88.1 Allergy status to other antibiotic agents; Z79.899 Other long term (current) drug therapy; E87.6 Hypokalemia; I10 Essential (primary) hypertension; R11.0 Nausea; M54.2 Cervicalgia; M79.662 Pain in left lower leg; K21.9 Gastro-esophageal reflux disease without esophagitis; D64.9 Anemia, unspecified; F41.9 Anxiety disorder, unspecified; F32.9 Major depressive disorder, single episode, unspecified
CPT/HCPCS: 99285 ×2; 36415; 93005; 85379; 80061; 80053; 82550 ×2; 82553 ×2; 83735; 84484 ×2; 85025; 85610; 85730; 71046; 93971; G0378 ×2

== ENCOUNTER → 2018-01-29 | Outpatient (CLI) | payer OTHER ==
--- NOTE | 2018-01-29 13:40 | ECHOS ---
STRESS ECHOCARDIOGRAM DATE OF SERVICE: 01/29/2018 INDICATIONS: Chest pain. MEDICATIONS: BASELINE HEART RATE: 66 BASELINE BLOOD PRESSURE: 129/83 MAXIMUM HEART RATE: 151 MAXIMUM BLOOD PRESSURE: 200/118 85% MPHR: 141 100% MPHR: 166 METS: 6.8 MAXIMUM STAGE REACHED: II TOTAL EXERCISE TIME: 5 minutes CLINICAL INFORMATION: The patient was exercised for a total period of 5 minutes. Peak heart rate of 151 was achieved. Maximum blood pressure of 200/118 mmHg was noted. Patient's test was terminated because patient got short of breath. The resting EKG shows normal sinus rhythm with normal WV interval and QRS duration and normal ST-T waves. Intermittent PVCs and PACs were noted during the testing. The baseline echocardiographic images reveal normal left ventricular chamber size with normal left ventricular systolic function. In the immediate postexercise period, normal increase in the wall thickness and contractility is noted. FINAL IMPRESSION: 1. This stress echocardiographic study is negative for stress-induced ischemia. 2. Patient's exercise tolerance is average. 3. Intermittent PVCs and PACs were noted during the exercise. MMODL / IJN: [id number] /
== END ==
LOC: RADNMMAIN 09:54
PROVIDERS: ATTEND Family Medicine
DX: I49.3 Ventricular premature depolarization (principal); I49.1 Atrial premature depolarization; Z88.1 Allergy status to other antibiotic agents
CPT/HCPCS: 93351

== ENCOUNTER → 2018-07-15 | Outpatient (CLI) | payer OTHER ==
--- NOTE | 2018-07-16 11:02 | MM ---
Reason for exam: screening (asymptomatic). Last mammogram was performed 1 year ago. History: Patient is postmenopausal. Physical Findings: A clinical breast exam by your physician is recommended on an annual basis and results should be correlated with mammographic findings. MG Screening Mammo w CAD Bilateral CC and MLO view(s) were taken. Prior study comparison: July 14, 2017, bilateral MG screening mammo w CAD. May 29, 2016, bilateral MG screening mammo w CAD. The breast tissue is heterogeneously dense. This may lower the sensitivity of mammography. No suspicious abnormality. No significant changes when compared with prior studies. ASSESSMENT: Negative, BI-RAD 1 RECOMMENDATION: Routine screening mammogram of both breasts in 1 year.
== END | disposition home or self-care (01) ==
LOC: RADMAMWWP 08:45
PROVIDERS: ATTEND Family Medicine
DX: Z12.31 Encounter for screening mammogram for malignant neoplasm of breast (principal)
CPT/HCPCS: 77067

== ENCOUNTER → 2019-01-22 | Outpatient (CLI) | payer OTHER ==
--- NOTE | 2019-01-23 07:24 | NM ---
EXAMINATION TYPE: NM hepatobiliary w EF DATE OF EXAM: 01/22/2019 COMPARISON: NONE HISTORY: Epigastric pain and nausea TECHNIQUE: After the intravenous administration of 4.91 mCi Tc 99m Mebrofenin hepatobiliary scintigra phy is performed. Immediate images post injection. FINDINGS: There is satisfactory initial accumulation of tracer by the liver. The gallbladder is visualized wit hin 26 minutes. The small bowel activity is noted within 16 minutes. At one hour 8 ounces of oral e nsure plus is given to mimic CCK and gallbladder ejection fraction is calculated at 83 %, slightly el evated. Therefore there is no scintigraphic evidence of cystic or common bile duct obstruction to lyon ggest acute cholecystitis. IMPRESSION: 1. No scintigraphic evidence of acute or chronic cholecystitis. 2. Slightly elevated gallbladder ejection fraction that can be on the basis of biliary hyperkinesia.
== END | disposition home or self-care (01) ==
LOC: RADNMMAIN 08:29
PROVIDERS: ATTEND Family Medicine
DX: M54.89 Other dorsalgia (principal); R10.13 Epigastric pain; R11.0 Nausea; Z88.1 Allergy status to other antibiotic agents
CPT/HCPCS: 78226; A9537

== ENCOUNTER → 2019-07-26 | Outpatient (CLI) | payer OTHER ==
--- NOTE | 2019-07-27 10:58 | MM ---
Reason for exam: screening (asymptomatic). Last mammogram was performed 1 year ago. History: Patient is postmenopausal. Physical Findings: A clinical breast exam by your physician is recommended on an annual basis and results should be correlated with mammographic findings. MG Screening Mammo w CAD Bilateral CC and MLO view(s) were taken. Prior study comparison: July 15, 2018, bilateral MG screening mammo w CAD. July 14, 2017, bilateral MG screening mammo w CAD. The breast tissue is heterogeneously dense. This may lower the sensitivity of mammography. Benign appearing calcifications in the left breast. No suspicious abnormality. No significant changes when compared with prior studies. ASSESSMENT: Benign, BI-RAD 2 RECOMMENDATION: Routine screening mammogram of both breasts in 1 year.
== END | disposition home or self-care (01) ==
LOC: RADMAMWWP 08:57
PROVIDERS: ATTEND Family Medicine
DX: Z12.31 Encounter for screening mammogram for malignant neoplasm of breast (principal)
CPT/HCPCS: 77067

== ENCOUNTER → 2020-08-10 | Outpatient (CLI) | payer OTHER ==
--- NOTE | 2020-08-13 12:27 | MM ---
Reason for exam: screening (asymptomatic). Last mammogram was performed 1 year and 1 month ago. History: Patient is postmenopausal. Physical Findings: A clinical breast exam by your physician is recommended on an annual basis and results should be correlated with mammographic findings. MG Screening Mammo w CAD Bilateral CC and MLO view(s) were taken. Prior study comparison: July 26, 2019, bilateral MG screening mammo w CAD. July 15, 2018, bilateral MG screening mammo w CAD. There are scattered fibroglandular densities. Stable benign calcifications. There is no discrete abnormality. No significant changes when compared with prior studies. ASSESSMENT: Benign, BI-RAD 2 RECOMMENDATION: Routine screening mammogram of both breasts in 1 year.
== END | disposition home or self-care (01) ==
LOC: RADMAMWWP 10:03
PROVIDERS: ATTEND Family Medicine
DX: Z12.31 Encounter for screening mammogram for malignant neoplasm of breast (principal); Z78.0 Asymptomatic menopausal state
CPT/HCPCS: 77067

== ENCOUNTER → 2021-02-04 | Outpatient (CLI) | payer OTHER ==
--- NOTE | 2021-02-07 08:45 | ECHOF ---
Referral Reason:R00.2 palpitations, R53.83 Other fatigue MEASUREMENTS -------- HEIGHT: 165.1 cm WEIGHT: 83.5 kg BP: 196/98 RVIDd: 2.3 cm (< 3.3) IVSd: 1.3 cm (0.6 - 1.1) LVIDd: 3.9 cm (3.9 - 5.3) LVPWd: 1.2 cm (0.6 - 1.1) IVSs: 1.9 cm LVIDs: 2.4 cm LVPWs: 1.4 cm LA Diam: 2.9 cm (2.7 - 3.8) LAESV Index (A-L): 15.10 ml/m Ao Diam: 3.0 cm (2.0 - 3.7) AV Cusp: 2.1 cm (1.5 - 2.6) MV EXCURSION: 12.126 mm (> 18.000) MV EF SLOPE: 37 mm/s (70 - 150) EPSS: 0.3 cm MV E Mitchell: 0.82 m/s MV DecT: 258 ms MV A Mitchell: 0.41 m/s MV E/A Ratio: 2.02 AR PHT: 603 ms FINDINGS -------- Sinus rhythm. This was a technically adequate study. The left ventricular size is normal. There is mild concentric left ventricular hypertrophy. Overa ll left ventricular systolic function is normal with, an EF between 60 - 65 %. The right ventricle is normal in size. Normal LA size by volume 22+/-6 ml/m2. The right atrium is normal in size. Interatrial and interventricular septum intact. There is mild aortic regurgitation. The mitral valve is normal. The tricuspid valve appears structurally normal. Unable to estimate RVSP due to inadequate TR jet s pectral doppler profile. Trace/mild (physiologic) pulmonic regurgitation. The aortic root size is normal. IVC Not well visulized. There is no pericardial effusion. CONCLUSIONS -------- 1. The left ventricular size is normal. 2. There is mild concentric left ventricular hypertrophy. 3. Overall left ventricular systolic function is normal with, an EF between 60 - 65 %. 4. There is mild aortic regurgitation. 5. Trace/mild (physiologic) pulmonic regurgitation. 6. There is no pericardial effusion. PRODUCTION PLANNING MANAGER: Dilia Zayas RDCS
== END | disposition home or self-care (01) ==
LOC: RADECHMAIN 11:30
PROVIDERS: ATTEND Family Medicine
DX: I08.8 Other rheumatic multiple valve diseases (principal)
CPT/HCPCS: 93306

== ENCOUNTER 2021-11-26 11:32 | Observation (INO) | payer OTHER ==
[2021-11-26] MEDS ORDERED: NITROGLYCERIN SL TABS 0.4 MG TAB SUBLINGUAL STA (11:44)
[2021-11-26] MEDS ORDERED: NITROGLYCERIN OINT 1 INCH/GM PACKET TOPICAL STA (11:44)
[2021-11-26] MEDS ORDERED: ASPIRIN 81 MG PO STA (11:44)
--- NOTE | 2021-11-26 11:49 | ED ---
General Adult HPI - General Chief complaint: Chest Pain Stated complaint: Chest pain Time Seen by Provider: 11/26/21 11:35 Source: patient, RN notes reviewed, old records reviewed Mode of arrival: ambulatory Limitations: no limitations - History of Present Illness Initial comments: This a 56-year-old female presents emergency Department complaining of left- sided chest pain. Patient states started last night he was intermittent in nature usually lasting only a minute or so she states she became diaphoretic with it and very nauseated. Patient went to her primary medical care doctor this morning and he sent her into the hospital to be evaluated. Patient denies any shortness of breath but she does states she has a history of high blood pressure and has been elevated since she started having chest pain. Patient states she also has a very strong family history with mother father and brother all having had heart disease. Patient denies any recent fever chills or cough. Patient denies any abdominal pain patient denies any vomiting or diarrhea. Patient denies any injury or trauma. Patient states that the pain is not reproducible. Patient states she continues to have pain currently. - Related Data Home Medications Medication Instructions Recorded Confirmed Chlorthalidone [Hygroton] 25 mg PO DAILY 08/20/16 12/28/17 Ergocalciferol (Vitamin D2) 50,000 unit PO Q30D 06/21/17 12/28/17 [Vitamin D2] Omeprazole [PriLOSEC] 20 mg PO AC-BID 06/21/17 12/28/17 busPIRone HCl [Buspar] 10 mg PO BID 06/21/17 12/28/17 Previous Rx's Medication Instructions Recorded Ibuprofen [Motrin] 600 mg PO Q6HR PRN #30 tab 03/07/15 Allergies Allergy/AdvReac Type Severity Reaction Status Date / Time No Known Allergies Allergy Verified 11/26/21 11:36 Review of Systems ROS Statement: Those systems with pertinent positive or pertinent negative responses have been documented in the HPI. ROS Other: All systems not noted in ROS Statement are negative. Past Medical History Past Medical History: GERD/Reflux, Hypertension Additional Past Medical History / Comment(s): anemia, MIGRAINE HEADACHES, vertigo History of Any Multi-Drug Resistant Organisms: None Reported Past Surgical History: Hysterectomy, Tubal Ligation Additional Past Surgical History / Comment(s): LAPAROSCOPIC EXAM, BUNION LEFT FOOT, Past Anesthesia/Blood Transfusion Reactions: Motion Sickness, Postoperative Nausea & Vomiting (PONV) Past Psychological History: Anxiety, Depression Smoking Status: Never smoker Past Alcohol Use History: None Reported Past Drug Use History: None Reported - Past Family History Mother Family Medical History: No Reported History General Exam - General Exam Comments Initial Comments: GENERAL: Patient is well-developed and well-nourished. Patient is nontoxic and well- hydrated and is in mild distress. ENT: Neck is soft and supple. No significant lymphadenopathy is noted. Oropharynx is clear. Moist mucous membranes. Neck has full range of motion without eliciting any pain. EYES: The sclera were anicteric and conjunctiva were pink and moist. Extraocular movements were intact and pupils were equal round and reactive to light. Eyelids were unremarkable. PULMONARY: Unlabored respirations. Good breath sounds bilaterally. No audible rales rhonchi or wheezing was noted. CARDIOVASCULAR: There is a regular rate and rhythm without any murmurs gallops or rubs. ABDOMEN: Soft and nontender with normal bowel sounds. SKIN: Skin is clear with no lesions or rashes and otherwise unremarkable. NEUROLOGIC: Patient is alert and oriented x3. Cranial nerves II through XII are grossly intact. Motor and sensory are also intact. Normal speech, volume and content. Symmetrical smile. MUSCULOSKELETAL: Normal extremities with adequate strength and full range of motion. LYMPHATICS: No significant lymphadenopathy is noted PSYCHIATRIC: Normal psychiatric evaluation. Limitations: no limitations Course Vital Signs 11/26/21 11/26/21 11/26/21 11:33 11:45 12:00 Temperature 97.6 F Pulse Rate 99 93 Respiratory 18 20 Rate Blood Pressure 192/82 196/109 175/91 O2 Sat by Pulse 100 98 Oximetry 11/26/21 12:30 Temperature Pulse Rate 93 Respiratory 18 Rate Blood Pressure 167/97 O2 Sat by Pulse 98 Oximetry Medical Decision Making - Medical Decision Making EKG shows intermittent AV block at 77 bpm QRS is 79 2-375 QTC is 47. Patient's EKG shows no ST segment elevation - Lab Data Result diagrams: 11/26/21 12:08 11/26/21 12:08 Lab Results 11/26/21 11/26/21 11/26/21 Range/Units 12:08 12:08 12:08 WBC 9.9 (3.8-10.6) k/uL RBC 5.37 (3.80-5.40) m/uL Hgb 16.1 H (11.4-16.0) gm/dL Hct 46.5 H (34.0-46.0) % MCV 86.6 (80.0-100.0) fL MCH 29.9 (25.0-35.0) pg MCHC 34.6 (31.0-37.0) g/dL RDW 13.3 (11.5-15.5) % Plt Count 194 (150-450) k/uL MPV 8.6 Neutrophils % 84 % Lymphocytes % 12 % Monocytes % 3 % Eosinophils % 1 % Basophils % 0 % Neutrophils # 8.3 H (1.3-7.7) k/uL Lymphocytes # 1.2 (1.0-4.8) k/uL Monocytes # 0.3 (0-1.0) k/uL Eosinophils # 0.1 (0-0.7) k/uL Basophils # 0.0 (0-0.2) k/uL PT 10.9 (9.0-12.0) sec INR 1.0 (<1.2) APTT 25.5 (22.0-30.0) sec Sodium 140 (137-145) mmol/L Potassium 3.4 L (3.5-5.1) mmol/L Chloride 103 (98-107) mmol/L Carbon Dioxide 25 (22-30) mmol/L Anion Gap 12 mmol/L BUN 9 (7-17) mg/dL Creatinine 0.85 (0.52-1.04) mg/dL Est GFR (CKD-EPI)AfAm 88 (>60 ml/min/1.73 sqM) Est GFR (CKD-EPI)NonAf 76 (>60 ml/min/1.73 sqM) Glucose 114 H (74-99) mg/dL Calcium 9.6 (8.4-10.2) mg/dL Magnesium 1.8 (1.6-2.3) mg/dL Total Bilirubin 1.7 H (0.2-1.3) mg/dL AST 21 (14-36) U/L ALT 12 (4-34) U/L Alkaline Phosphatase 121 (38-126) U/L Troponin I (0.000-0.034) ng/mL Total Protein 8.3 H (6.3-8.2) g/dL Albumin 4.9 (3.5-5.0) g/dL 11/26/21 Range/Units 12:08 WBC (3.8-10.6) k/uL RBC (3.80-5.40) m/uL Hgb (11.4-16.0) gm/dL Hct (34.0-46.0) % MCV (80.0-100.0) fL MCH (25.0-35.0) pg MCHC (31.0-37.0) g/dL RDW (11.5-15.5) % Plt Count (150-450) k/uL MPV Neutrophils % % Lymphocytes % % Monocytes % % Eosinophils % % Basophils % % Neutrophils # (1.3-7.7) k/uL Lymphocytes # (1.0-4.8) k/uL Monocytes # (0-1.0) k/uL Eosinophils # (0-0.7) k/uL Basophils # (0-0.2) k/uL PT (9.0-12.0) sec INR (<1.2) APTT (22.0-30.0) sec Sodium (137-145) mmol/L Potassium (3.5-5.1) mmol/L Chloride (98-107) mmol/L Carbon Dioxide (22-30) mmol/L Anion Gap mmol/L BUN (7-17) mg/dL Creatinine (0.52-1.04) mg/dL Est GFR (CKD-EPI)AfAm (>60 ml/min/1.73 sqM) Est GFR (CKD-EPI)NonAf (>60 ml/min/1.73 sqM) Glucose (74-99) mg/dL Calcium (8.4-10.2) mg/dL Magnesium (1.6-2.3) mg/dL Total Bilirubin (0.2-1.3) mg/dL AST (14-36) U/L ALT (4-34) U/L Alkaline Phosphatase (38-126) U/L Troponin I <0.012 (0.000-0.034) ng/mL Total Protein (6.3-8.2) g/dL Albumin (3.5-5.0) g/dL Disposition Clinical Impression: Chest pain Disposition: ADMITTED IP TO THIS HOSP Referrals: Chaparro Horne MD [Primary Care Provider] - 1-2 days Time of Disposition: 13:52
[2021-11-26] MEDS ORDERED: LORazepam 1 MG TAB PO STA (11:53)
[2021-11-26 12:17] LABS: Basophils % (A) 0 %; Eosinophils # (A) 0.1 k/uL (0-0.7); Eosinophils % (A) 1 %; HCT 46.5 % (34.0-46.0); HGB 16.1 gm/dL (11.4-16.0); Lymphocytes # (A) 1.2 k/uL (1.0-4.8); Lymphocytes % (A) 12 %; MCH 29.9 pg (25.0-35.0); MCHC 34.6 g/dL (31.0-37.0); MCV 86.6 fL (80.0-100.0); Mean Platelet Volume 8.6; Monocytes # (A) 0.3 k/uL (0-1.0); Monocytes % (A) 3 %; Neutrophils # (A) 8.3 k/uL (1.3-7.7); Neutrophils % (A) 84 %; Platelet Count 194 k/uL (150-450); RBC 5.37 m/uL (3.80-5.40); RDW 13.3 % (11.5-15.5); WBC 9.9 k/uL (3.8-10.6)
[2021-11-26 12:27] LABS: Albumin 4.9 g/dL (3.5-5.0); Calcium 9.6 mg/dL (8.4-10.2); Magnesium 1.8 mg/dL (1.6-2.3); Partial Thromboplastin Time 25.5 sec (22.0-30.0); Potassium 3.4 mmol/L (3.5-5.1); Prothrombin Time 10.9 sec (9.0-12.0); Total Bilirubin 1.7 mg/dL (0.2-1.3); Total Protein 8.3 g/dL (6.3-8.2)
--- NOTE | 2021-11-26 12:27 | XR ---
EXAMINATION TYPE: XR chest 2V DATE OF EXAM: 11/26/2021 COMPARISON: 12/27/2017 HISTORY: Shortness of breath TECHNIQUE: Frontal and lateral views of the chest are obtained. FINDINGS: Scattered senescent parenchymal changes noted. No evidence for infiltrate. No evidence for atelectasis. Heart size is stable. Mediastinal structures are stable and grossly unremarkable. No evidence for hilar prominence. Degenerative changes dorsal spine. IMPRESSION: 1. No evidence for acute pulmonary disease.
[2021-11-26] MEDS ORDERED: SODIUM CHLORIDE 0.9% 1,000 ML IV ONE (13:53)
[2021-11-26] MEDS ORDERED: busPIRone HCl 10 MG TAB PO PRN (15:25)
[2021-11-26] MEDS ORDERED: PANTOPRAZOLE 40 MG TABLET PO PRN (15:25)
[2021-11-26] MEDS ORDERED: Potassium Replacement Protocol 1 EACH MISC MISCELLANE PRN (16:07)
[2021-11-26] MEDS: POTASSIUM CHLORIDE ER 20 MEQ TAB.ER PO SCH ×2 (16:15→17:53)
[2021-11-26] MEDS: METOPROLOL TARTRATE 25 MG TAB PO SCH ×2 (16:15→23:16)
[2021-11-26] MEDS ORDERED: ACETAMINOPHEN TAB 325 MG TAB PO PRN (17:44)
--- NOTE | 2021-11-26 19:49 | HP ---
HISTORY AND PHYSICAL CHIEF COMPLAINT: Chest pain, left arm pain, nausea and family history of heart disease. HISTORY OF PRESENT ILLNESS: This is the first known admission for this 56-year-old white female. She has a history of hypertension. She came into the office the day of admission, stating that last night when she was taking a shower or bath she began to notice some left anterior chest pain with radiation into the anterior left shoulder. She felt nauseated, but she denied significant shortness of breath or diaphoresis. She has a strong family history of heart disease. She came to the office, where her EKG did demonstrate slight ST- segment elevation in the aVL and V1. This was compared to a prior EKG. Her blood pressure was also 150/100. There was concern enough that it was decided to send her to the hospital, where she could receive a troponin on an emergency basis. She had a ride there and went to [facility]. REVIEW OF SYSTEMS: She denies any neurologic problems, change in vision or hearing, fever, chills, cough, hemoptysis, orthopnea, PND, abdominal pain, vomiting, diarrhea, melena, urinary complaints, etc. Past medical history, family history, and personal and social histories are all otherwise unremarkable. She is ALLERGIC TO QUINOLONES. She is on losartan 25 mg once a day, Lexapro 10 mg once a day, ibuprofen 600 mg once a day as needed, amlodipine 10 mg once a day, furosemide 20 mg once a day, omeprazole 20 mg once a day, BuSpar 10 mg t.i.d. p.r.n., and Antivert p.r.n. She has had some problems with depression, anxiety and stress. There is significant cardiovascular disease in her family with strokes, coronary artery disease and hypertension in first-degree family relatives. Both of her parents of heart disease. She does not smoke. PHYSICAL EXAMINATION: Blood pressure is 150/100 with a pulse of 91, respirations of 30, and she is afebrile. In general she appeared to be slightly overweight and uncomfortable. She seemed anxious. Skin color was normal. Skin was warm and dry. Lymph nodes were not enlarged. Head, ears, eyes, nose, mouth and throat were normal. Neck veins were not distended. Thyroid was not enlarged. Chest was clear. Cardiac exam demonstrated normal sinus rhythm and no murmurs or extra sounds. The abdomen was soft and nontender. There was no visceromegaly or masses. Bowel sounds were present. Extremities were normal. Neurologically she is intact. She is admitted to the hospital with the diagnoses: 1. Chest pain. 2. Hypertension. 3. Strong family history for heart disease. 4. Hypertension. 5. History of depression. PLAN: 1. Bedrest. 2. IV fluids. 3. Serial EKGs and enzymes. 4. Cardiology consult. MMODL / IJN: [id number] /
[2021-11-26] MEDS ORDERED: ONDANSETRON 4 MG/2 ML VIAL IVP PRN (22:23)
[2021-11-26] MEDS ORDERED: traMADol 50 MG TAB PO PRN (22:24)
[2021-11-27 07:14] VITALS: RESP 18
[2021-11-27] MEDS ORDERED: CHOLECALCIFEROL 25 MCG (1000 IU) TABLET PO SCH (09:00)
[2021-11-27] MEDS ORDERED: LOSARTAN 25 MG TAB PO SCH (09:00)
[2021-11-27] MEDS ORDERED: FUROSEMIDE 20 MG TAB PO SCH (09:00)
[2021-11-27] MEDS ORDERED: amLODIPine 10 MG TAB PO SCH (09:00)
--- NOTE | 2021-11-27 09:09 | P.CRDCN ---
History of Present Illness Consult date: 11/27/21 History of present illness: HISTORY OF PRESENT ILLNESS: This is a 56-year-old female with a past medical history significant for hypertension. 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 We have been asked to see the patient in consultation for chest pain. Patient examined at the bedside. Patient states she has had chest pain on and off for years. She states yesterday she had pain in the middle of her chest. She denied any radiation of the pain. She reports feeling nauseous but denies any vomiting. Patient also reports a history of palpitations. However she denies having any palpitations yesterday or today. She denies any shortness of breath. She reports a family history of CAD and states her mom dad and brother all had coronary artery disease. * EKG reveals sinus mechanism with a burst of junctional. Telemetry this morning reveals sinus mechanism * Chest xray negative for acute process * Laboratory data: WBC 9.9. Hemoglobin 16.1. Platelet count 194. Sodium 140. Potassium 3.4. BUN 9. Creatinine 0.85. Magnesium 1.8. * Current home cardiac medications include losartan 25 mg daily, Norvasc 10 mg daily, Lasix 20 mg daily * Patient underwent stress echo in January 2018 which was negative for ischemia * Echocardiogram completed in January 2021 revealed ejection fraction 60-65% with mild aortic regurgitation REVIEW OF SYSTEMS: At the time of my exam: CONSTITUTIONAL: Denies fever or chills. HEENT: Denies blurred vision, vision changes, or eye pain. Denies hemoptysis CARDIOVASCULAR: Denies chest pain. Denies orthopnea. Denies PND. Denies palpitations RESPIRATORY: Denies shortness of breath. GASTROINTESTINAL: Denies abdominal pain. Denies nausea or vomiting. HEMATOLOGIC: Denies bleeding disorders. GENITOURINARY: Denies any blood in urine. SKIN: Denies pruitis. Denies rash. PHYSICAL EXAM: VITAL SIGNS: Reviewed. GENERAL: Well-developed in no acute distress. HEENT: Head is normocephalic. Pupils are equal, round. Sclerae anicteric. Mucous membranes of the mouth are moist. Neck supple. No JVD or thyromegaly LUNGS: Respirations even and unlabored. Lungs essentially clear to auscultation bilaterally. HEART: Regular rate and rhythm. S1 and S2 heard. ABDOMEN: Soft. Nondistended. Nontender. EXTREMITIES: Normal range of motion. No clubbing or cyanosis. Peripheral pulses intact. No lower extremity edema NEUROLOGIC: Awake and alert. Oriented x 3. ASSESSMENT: Chest pain, troponins negative 2 Hypertension Junctional rhythm, resolved Family history of CAD PLAN: Acute coronary and has been ruled out Check TSH Resume home cardiac medications Obtain 2-D echo to assess cardiac structure and function Patient will undergo stress echocardiogram today to assess for ischemia Further recommendations pending patient's course Nurse practitioner note has been reviewed by physician. Signing provider agrees with the documented findings, assessment, and plan of care. Past Medical History Past Medical History: GERD/Reflux, Hypertension Additional Past Medical History / Comment(s): Frequent headaches, occasional edema bilateral feet/ankles/hands, vertigo, hypokalemia, anemia, costrochondritis. History of Any Multi-Drug Resistant Organisms: None Reported Past Surgical History: Hysterectomy, Tubal Ligation Additional Past Surgical History / Comment(s): Robot assisted hysterectomy, D&Cs, L foot bunionectomy Past Anesthesia/Blood Transfusion Reactions: No Reported Reaction Past Psychological History: Anxiety, Depression Additional Psychological History / Comment(s): Pt resides with her significant other. She is independent. Smoking Status: Never smoker Past Alcohol Use History: None Reported Past Drug Use History: None Reported - Past Family History Father Family Medical History: Congestive Heart Failure (CHF), Myocardial Infarction ([place]) Additional Family Medical History / Comment(s): Father is . Mother Family Medical History: Congestive Heart Failure (CHF), Myocardial Infarction ([place]) Additional Family Medical History / Comment(s): Mother of chf at the age of 86yrs. Medications and Allergies Home Medications Medication Instructions Recorded Confirmed Type Omeprazole [PriLOSEC] 20 mg PO BID PRN 06/21/17 11/26/21 History busPIRone HCl [Buspar] 10 mg PO DAILY PRN 06/21/17 11/26/21 History Cholecalciferol [Vitamin D3 (25 25 mcg PO DAILY 11/26/21 11/26/21 History Mcg = 1000 Iu)] Furosemide [Lasix] 20 mg PO DAILY 11/26/21 11/26/21 History Ibuprofen [Motrin] 600 mg PO DAILY PRN 11/26/21 11/26/21 History Losartan [Cozaar] 25 mg PO DAILY 11/26/21 11/26/21 History amLODIPine [Norvasc] 10 mg PO DAILY 11/26/21 11/26/21 History Allergies Allergy/AdvReac Type Severity Reaction Status Date / Time No Known Allergies Allergy Verified 11/26/21 14:15 Physical Exam Vitals: Vital Signs Temp Pulse Pulse Resp BP BP Pulse Ox 11/27/21 07:00 97.5 F L 60 18 181/82 98 11/27/21 01:34 97.9 F 76 17 161/78 97 11/26/21 20:37 98.1 F 55 L 16 154/69 97 11/26/21 16:10 120 H 11/26/21 15:00 98.3 F 109 H 17 135/90 97 11/26/21 12:30 93 18 167/97 98 11/26/21 12:00 175/91 11/26/21 11:45 93 20 196/109 98 11/26/21 11:33 97.6 F 99 18 192/82 100 Intake and Output 11/26/21 11/27/21 11/27/21 22:59 06:59 14:59 Intake Total 120 Output Total 1 Balance 119 Intake: Oral 120 Output: Stool 1 Other: Voiding Method Toilet Toilet # Voids 2 Results 11/26/21 12:08 11/26/21 12:08 Cardiac Enzymes 11/26/21 11/26/21 Range/Units 12:08 12:08 AST 21 (14-36) U/L Troponin I <0.012 (0.000-0.034) ng/mL Coagulation 11/26/21 Range/Units 12:08 PT 10.9 (9.0-12.0) sec APTT 25.5 (22.0-30.0) sec CBC 11/26/21 Range/Units 12:08 WBC 9.9 (3.8-10.6) k/uL RBC 5.37 (3.80-5.40) m/uL Hgb 16.1 H (11.4-16.0) gm/dL Hct 46.5 H (34.0-46.0) % Plt Count 194 (150-450) k/uL Comprehensive Metabolic Panel 11/26/21 Range/Units 12:08 Sodium 140 (137-145) mmol/L Potassium 3.4 L (3.5-5.1) mmol/L Chloride 103 (98-107) mmol/L Carbon Dioxide 25 (22-30) mmol/L BUN 9 (7-17) mg/dL Creatinine 0.85 (0.52-1.04) mg/dL Glucose 114 H (74-99) mg/dL Calcium 9.6 (8.4-10.2) mg/dL AST 21 (14-36) U/L ALT 12 (4-34) U/L Alkaline Phosphatase 121 (38-126) U/L Total Protein 8.3 H (6.3-8.2) g/dL Albumin 4.9 (3.5-5.0) g/dL Current Medications Generic Name Dose Route Start Last Admin Trade Name Freq PRN Reason Stop Dose Admin Acetaminophen 650 mg 11/26/21 17:44 11/26/21 17:53 Acetaminophen Tab 325 Mg Tab PO 650 mg Q4HR PRN Administration Fever and/ or Pain Amlodipine Besylate 10 mg 11/27/21 09:00 Amlodipine 10 Mg Tab PO DAILY [facility] Buspirone HCl 10 mg 11/26/21 15:25 Buspirone Hcl 10 Mg Tab PO DAILY PRN Anxiety Cholecalciferol 25 mcg 11/27/21 09:00 Cholecalciferol 25 Mcg (1000 Iu) Tablet PO DAILY [facility] Furosemide 20 mg 11/27/21 09:00 Furosemide 20 Mg Tab PO DAILY [facility] Losartan Potassium 25 mg 11/27/21 09:00 Losartan 25 Mg Tab PO DAILY [facility] Metoprolol Tartrate 25 mg 11/26/21 16:15 11/26/21 23:16 Metoprolol Tartrate 25 Mg Tab PO Not Given BID [facility] Miscellaneous Information 1 each 11/26/21 16:07 Potassium Replacement Protocol 1 Each Misc MISCELLANE DAILY PRN Per Protocol Protocol Ondansetron HCl 4 mg 11/26/21 22:23 Ondansetron 4 Mg/2 Ml Vial IVP Q6HR PRN Nausea And Vomiting Pantoprazole Sodium 40 mg 11/26/21 15:25 Pantoprazole 40 Mg Tablet PO BID PRN Heartburn Tramadol HCl 50 mg 11/26/21 22:24 Tramadol 50 Mg Tab PO Q6HR PRN Moderate Pain Intake and Output 11/26/21 11/27/21 11/27/21 22:59 06:59 14:59 Intake Total 120 Output Total 1 Balance 119 Intake: Oral 120 Output: Stool 1 Other: Voiding Method Toilet Toilet # Voids 2 11/26/21 12:08 11/26/21 12:08
--- NOTE | 2021-11-27 13:24 | CA ---
Stress Echo Report Adilene Castellano Age: 56 Gender: F : 1965 Exam Date: 11/27/2021 11:14 Exam Location: [facility] Ht (in): 65 Wt (lb): 183 Ordering Physician: Ivana Moffett Referring Physician: [id number] Lea Faith Doctor: JULIA Technologist Procedure CPT: Indication: CP ICD-9 Codes: Rhythm: Patient History: Chest Pain, Short of breath and palpitations Cardiac Medications: see list Medications in past 24 hours: Contrast: Stress Results Protocol: Gerry Total dose(mL): Exercise Duration (min:sec): Max ST Depression (mm): Angina Score: Gamble Score: METS: 4.6 Resting HR: 66 Resting BP: 159 / 88 Peak HR: 152 Peak BP: 205 / 90 Max Predicted HR: 162 94 % Max Predicted HR Target HR: 138 Double Product: 85483 Stress Summary: BP Response: Reason for Termination: Reached target heart rate or work-load Cardiac Symptoms: Test terminated after reaching target heart rate (85% max predicted) ECG Analysis Resting ECG: Stress ECG: Arrhythmia: Echo Analysis Resting Echo: Peak Echo Analysis: MEASUREMENTS (Male/Female) Normal Values CONCLUSIONS Average exercise tolerance Normal EKG response to exercise Normal echocardiogram response to exercise Dr. Nehemiah Sethi MD (Electronically Signed) Final Date: 27 November 2021 13:24
[2021-11-27 13:29] VITALS: BP 162/77; PULSE 62; TEMP 98
[2021-11-27] MEDS ORDERED: METOPROLOL SUCCINATE (ER) 50 MG TAB.ER.24H PO STA (15:30)
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
[2021-11-28] MEDS ORDERED: METOPROLOL SUCCINATE (ER) 100 MG TAB.ER.24H PO SCH (09:00)
[2021-11-28] MEDS ORDERED: LOSARTAN 50 MG TAB PO SCH ×2 (09:00)
--- NOTE | 2021-11-28 10:42 | CA ---
Transthoracic Echo Report Name: Adilene Castellano Age: 56 Gender: F : 1965 Exam Date: 11/27/2021 10:11 Exam Location: [facility] Ht (in): 65 Wt (lb): 183 Ordering Physician: Ivana Moffett Attending/Referring Phys: [id number], Zuhair Clinical Admissions Manager Alma Plascencia RDCS Procedure CPT: Indications: LV function Cardiac Hx: Technical Quality: Fair Contrast 1: Total Dose (mL): Contrast 2: Total Dose (mL): MEASUREMENTS (Male / Female) Normal Values 2D ECHO LV Diastolic Diameter PLAX 3.9 cm 4.2 - 5.9 / 3.9 - 5.3 cm LV Systolic Diameter PLAX 2.7 cm IVS Diastolic Thickness 1.1 cm 0.6 - 1.0 / 0.6 - 0.9 cm LVPW Diastolic Thickness 1.2 cm 0.6 - 1.0 / 0.6 - 0.9 cm LV Relative Wall Thickness 0.6 RV Internal Dim ED PLAX 3.0 cm LA Volume 30.8 cm??? 18 - 58 / 22 - 52 cm??? M-MODE Aortic Root Diameter MM 2.4 cm LA Systolic Diameter MM 3.2 cm LA Ao Ratio MM 1.3 AV Cusp Separation MM 1.6 cm DOPPLER AV Peak Velocity 143.6 cm/s AV Peak Gradient 8.3 mmHg AI Peak Velocity 370.0 cm/s AI Peak Gradient 54.7 mmHg AI Pressure Half Time 551.5 ms MV Area PHT 3.4 cm??? Mitral E Point Velocity 77.7 cm/s Mitral A Point Velocity 99.3 cm/s Mitral E to A Ratio 0.8 MV Deceleration Time 225.3 ms MV E' Velocity 8.0 cm/s Mitral E to MV E' Ratio 9.7 TR Peak Velocity 191.5 cm/s TR Peak Gradient 14.7 mmHg Right Ventricular Systolic Press 19.7 mmHg FINDINGS Left Ventricle Mildly increased left ventricular wall thickness. Normal left ventricular systolic function with no obvious regional wall motion abnormalities. Normal left ventricular diastolic filling pattern. Left ventricular ejection fraction is estimated at 55-60 %. Right Ventricle Normal right ventricular size and function. Right ventricular systolic pressure within normal limits. Right Atrium Normal right atrial size. Left Atrium Normal left atrial size. No evidence for an atrial septal defect. Mitral Valve Structurally normal mitral valve. No mitral stenosis, regurgitation or prolapse. Aortic Valve No aortic valve stenosis or regurgitation. Tricuspid Valve Structurally normal tricuspid valve. Mild tricuspid regurgitation. Pulmonic Valve Structurally normal pulmonic valve. Trace pulmonic regurgitation. Pericardium No pericardial effusion. Aorta Normal size aortic root and proximal ascending aorta. CONCLUSIONS Normal left ventricular dimension and systolic function Previewed by: Dr. Nehemiah Sethi MD (Electronically Signed) Final Date: 28 November 2021 10:41
== END 2021-11-27 16:55 | disposition home or self-care (01) ==
LOC: EC 11:32 → 6NMEDSUR 13:55
PROVIDERS: ADMIT Family Medicine; ATTEND Family Medicine
DX: R07.89 Other chest pain (principal); I10 Essential (primary) hypertension; I44.30 Unspecified atrioventricular block; I07.1 Rheumatic tricuspid insufficiency; I49.2 Junctional premature depolarization; R11.0 Nausea; R61 Generalized hyperhidrosis; K21.9 Gastro-esophageal reflux disease without esophagitis; D64.9 Anemia, unspecified; G43.909 Migraine, unspecified, not intractable, without status migrainosus; F41.9 Anxiety disorder, unspecified; F32.A Depression, unspecified; F43.9 Reaction to severe stress, unspecified; Z79.899 Other long term (current) drug therapy; Z88.1 Allergy status to other antibiotic agents; Z98.51 Tubal ligation status; Z90.710 Acquired absence of both cervix and uterus; Z98.890 Other specified postprocedural states; Z82.49 Family history of ischemic heart disease and other diseases of the circulatory system; Z82.3 Family history of stroke
CPT/HCPCS: 99285; 36415; 93005; 93306; 93351; 80053; 84443; 83735; 84484 ×2; 85025; 85610; 85730; 71046; G0378 ×2

== ENCOUNTER → 2021-12-11 | Outpatient (CLI) | payer OTHER ==
--- NOTE | 2021-12-16 13:34 | HM ---
HOLTER MONITOR REPORT 24 HOUR HOLTER REPORT: The patient in her diary did not indicate any symptoms. Heart rate ranged from 42 to 140 beats per minute with average heart rate of 62 beats per minute. There were less than 0.1% PVCs noted. There was no evidence of any Chris arrhythmia. There was 1 episode of what seems to be a sinus tachycardia and about 3 beats of supraventricular ectopy in a row. No significant arrhythmia was noted. There was evidence of some junctional beats at about 9:10 a.m. on the November 11. There was no evidence of any significant ventricular ectopic beats. No significant episodes of any bradyarrhythmia. FINAL IMPRESSION: Predominant rhythm is sinus with average heart rate of 62 beats per minute. There is evidence of sinus tachycardia with rare PVCs. There was some junctional activity. At a rate of about 70 beats per minute that occurred at 9:10 a.m. on December 11. The patient did have a diary. No significant symptoms were reported. MMODL / IJN: [id number] /
== END | disposition home or self-care (01) ==
LOC: RADECHMAIN 07:46
PROVIDERS: ATTEND Family Medicine
DX: R00.2 Palpitations (principal)
CPT/HCPCS: 93225; 93226

== ENCOUNTER 2021-12-25 23:05 | Emergency (ER) | payer OTHER ==
[2021-12-25 23:21] VITALS: TEMP 97.8
[2021-12-25] MEDS ORDERED: ONDANSETRON 4 MG/2 ML VIAL IVP STA (23:58)
[2021-12-25] MEDS ORDERED: SODIUM CHLORIDE 0.9% 1,000 ML IV STA (23:58)
--- NOTE | 2021-12-26 00:03 | ED ---
Dizziness HPI - General Chief Complaint: Dizziness Stated Complaint: Dizziness Time Seen by Provider: 12/25/21 23:25 Source: patient Mode of arrival: wheelchair - History of Present Illness Initial Comments: This patient is a 56-year-old woman who presents to have evaluation for feeling very lightheaded and nearly passing out. The patient states that she has been having diarrhea all day. She states that this is not entirely unusual for her though maybe today was a little worse than usual. She states that when she got up to get very for bed she felt very lightheaded and dizzy. She thought she might pass out. She did sit down briefly but then when she got up the symptoms recurred. When she was feeling that way she did not notice chest pain, palpitations, dyspnea or diaphoresis. She did have some mild tingling of the extremities. MD Complaint: dizziness, lightheadedness, near syncope -: minutes(s) Timing: sudden onset Description: lightheadedness, near-syncope History of Trauma: No Improves With: remaining still Worsens With: movement - Related Data Home Medications Medication Instructions Recorded Confirmed Omeprazole [PriLOSEC] 20 mg PO BID PRN 06/21/17 11/26/21 busPIRone HCl [Buspar] 10 mg PO DAILY PRN 06/21/17 11/26/21 Cholecalciferol [Vitamin D3 (25 25 mcg PO DAILY 11/26/21 11/26/21 Mcg = 1000 Iu)] Furosemide [Lasix] 20 mg PO DAILY 11/26/21 11/26/21 Ibuprofen [Motrin] 600 mg PO DAILY PRN 11/26/21 11/26/21 amLODIPine [Norvasc] 10 mg PO DAILY 11/26/21 11/26/21 Previous Rx's Medication Instructions Recorded Losartan [Cozaar] 100 mg PO DAILY #30 tab 11/27/21 Metoprolol Succinate (ER) [Toprol 100 mg PO DAILY #30 tab 11/27/21 Xl] Allergies Allergy/AdvReac Type Severity Reaction Status Date / Time No Known Allergies Allergy Verified 11/26/21 14:15 Review of Systems ROS Statement: Those systems with pertinent positive or pertinent negative responses have been documented in the HPI. ROS Other: All systems not noted in ROS Statement are negative. Constitutional: Denies: fever, chills, weakness Eyes: Denies: vision change Respiratory: Denies: cough, dyspnea Cardiovascular: Reports: syncope (Near syncope). Denies: chest pain, palpitations, orthopnea, edema Gastrointestinal: Reports: diarrhea. Denies: abdominal pain, nausea, vomiting, constipation, melena, hematochezia Genitourinary: Denies: dysuria, hematuria Musculoskeletal: Denies: back pain Skin: Denies: rash Neurological: Denies: headache, weakness Past Medical History Past Medical History: GERD/Reflux, Hypertension Additional Past Medical History / Comment(s): Frequent headaches, occasional edema bilateral feet/ankles/hands, vertigo, hypokalemia, anemia, costrochondritis. History of Any Multi-Drug Resistant Organisms: None Reported Past Surgical History: Hysterectomy, Tubal Ligation Additional Past Surgical History / Comment(s): Robot assisted hysterectomy, D&Cs, L foot bunionectomy Past Anesthesia/Blood Transfusion Reactions: No Reported Reaction Past Psychological History: Anxiety, Depression Smoking Status: Never smoker Past Alcohol Use History: None Reported Past Drug Use History: None Reported - Past Family History Father Family Medical History: Congestive Heart Failure ([place]), Myocardial Infarction ([place]) Additional Family Medical History / Comment(s): Father is . Mother Family Medical History: Congestive Heart Failure ([place]), Myocardial Infarction ([place]) Additional Family Medical History / Comment(s): Mother of chf at the age of 86yrs. General Exam General appearance: alert, in no apparent distress Head exam: Present: atraumatic, normocephalic Eye exam: Present: normal appearance. Absent: scleral icterus, conjunctival injection Neck exam: Present: normal inspection Respiratory exam: Present: normal lung sounds bilaterally. Absent: respiratory distress, wheezes, rales, rhonchi, stridor Cardiovascular Exam: Present: regular rate, normal rhythm, normal heart sounds. Absent: systolic murmur, diastolic murmur, rubs, gallop GI/Abdominal exam: Present: soft. Absent: distended, tenderness, guarding, rebound, rigid, mass Extremities exam: Present: normal inspection, normal capillary refill. Absent: pedal edema, calf tenderness Back exam: Present: normal inspection. Absent: CVA tenderness (R), CVA t enderness (L) Neurological exam: Present: alert Skin exam: Present: warm, dry, intact, normal color. Absent: rash Course Vital Signs 12/25/21 12/25/21 12/26/21 23:16 23:40 00:10 Temperature 97.8 F Pulse Rate 64 66 61 Respiratory 19 21 22 Rate Blood Pressure 147/62 146/85 149/94 O2 Sat by Pulse 99 99 100 Oximetry 12/26/21 00:40 Temperature Pulse Rate 54 L Respiratory 15 Rate Blood Pressure 157/79 O2 Sat by Pulse 99 Oximetry Medical Decision Making - Lab Data Result diagrams: 12/26/21 00:02 12/26/21 00:02 Lab Results 12/26/21 12/26/21 12/26/21 Range/Units 00:02 00:02 00:02 WBC 10.4 (3.8-10.6) k/uL RBC 5.40 (3.80-5.40) m/uL Hgb 15.3 (11.4-16.0) gm/dL Hct 47.0 H (34.0-46.0) % MCV 87.1 (80.0-100.0) fL MCH 28.4 (25.0-35.0) pg MCHC 32.6 (31.0-37.0) g/dL RDW 12.8 (11.5-15.5) % Plt Count 235 (150-450) k/uL MPV 8.5 Neutrophils % 67 % Lymphocytes % 26 % Monocytes % 6 % Eosinophils % 1 % Basophils % 0 % Neutrophils # 7.0 (1.3-7.7) k/uL Lymphocytes # 2.7 (1.0-4.8) k/uL Monocytes # 0.6 (0-1.0) k/uL Eosinophils # 0.1 (0-0.7) k/uL Basophils # 0.0 (0-0.2) k/uL Sodium 139 (137-145) mmol/L Potassium 3.4 L (3.5-5.1) mmol/L Chloride 101 (98-107) mmol/L Carbon Dioxide 27 (22-30) mmol/L Anion Gap 11 mmol/L BUN 14 (7-17) mg/dL Creatinine 0.84 (0.52-1.04) mg/dL Est GFR (CKD-EPI)AfAm 89 (>60 ml/min/1.73 sqM) Est GFR (CKD-EPI)NonAf 77 (>60 ml/min/1.73 sqM) Glucose 129 H (74-99) mg/dL Plasma Lactic Acid Reyes (0.7-2.0) mmol/L Calcium 9.9 (8.4-10.2) mg/dL Total Bilirubin 0.9 (0.2-1.3) mg/dL AST 20 (14-36) U/L ALT 11 (4-34) U/L Alkaline Phosphatase 98 (38-126) U/L Troponin I <0.012 (0.000-0.034) ng/mL Total Protein 7.8 (6.3-8.2) g/dL Albumin 4.6 (3.5-5.0) g/dL 12/26/21 Range/Units 00:09 WBC (3.8-10.6) k/uL RBC (3.80-5.40) m/uL Hgb (11.4-16.0) gm/dL Hct (34.0-46.0) % MCV (80.0-100.0) fL MCH (25.0-35.0) pg MCHC (31.0-37.0) g/dL RDW (11.5-15.5) % Plt Count (150-450) k/uL MPV Neutrophils % % Lymphocytes % % Monocytes % % Eosinophils % % Basophils % % Neutrophils # (1.3-7.7) k/uL Lymphocytes # (1.0-4.8) k/uL Monocytes # (0-1.0) k/uL Eosinophils # (0-0.7) k/uL Basophils # (0-0.2) k/uL Sodium (137-145) mmol/L Potassium (3.5-5.1) mmol/L Chloride (98-107) mmol/L Carbon Dioxide (22-30) mmol/L Anion Gap mmol/L BUN (7-17) mg/dL Creatinine (0.52-1.04) mg/dL Est GFR (CKD-EPI)AfAm (>60 ml/min/1.73 sqM) Est GFR (CKD-EPI)NonAf (>60 ml/min/1.73 sqM) Glucose (74-99) mg/dL Plasma Lactic Acid Reyes 2.3 H* (0.7-2.0) mmol/L Calcium (8.4-10.2) mg/dL Total Bilirubin (0.2-1.3) mg/dL AST (14-36) U/L ALT (4-34) U/L Alkaline Phosphatase (38-126) U/L Troponin I (0.000-0.034) ng/mL Total Protein (6.3-8.2) g/dL Albumin (3.5-5.0) g/dL Disposition Clinical Impression: Diarrhea, Near syncope Disposition: HOME SELF-CARE Condition: Good Instructions (If sedation given, give patient instructions): Near Syncope (ED) Is patient prescribed a controlled substance at d/c from ED?: No Referrals: Chaparro Horne MD [Primary Care Provider] - 1-2 days
[2021-12-26 00:09] LABS: Basophils % (A) 0 %; Eosinophils # (A) 0.1 k/uL (0-0.7); Eosinophils % (A) 1 %; HGB 15.3 gm/dL (11.4-16.0); Lymphocytes # (A) 2.7 k/uL (1.0-4.8); Lymphocytes % (A) 26 %; MCH 28.4 pg (25.0-35.0); MCHC 32.6 g/dL (31.0-37.0); MCV 87.1 fL (80.0-100.0); Mean Platelet Volume 8.5; Monocytes # (A) 0.6 k/uL (0-1.0); Monocytes % (A) 6 %; Neutrophils % (A) 67 %; Platelet Count 235 k/uL (150-450); RDW 12.8 % (11.5-15.5); WBC 10.4 k/uL (3.8-10.6)
[2021-12-26 00:20] LABS: Albumin 4.6 g/dL (3.5-5.0); Calcium 9.9 mg/dL (8.4-10.2); Potassium 3.4 mmol/L (3.5-5.1); Total Bilirubin 0.9 mg/dL (0.2-1.3); Total Protein 7.8 g/dL (6.3-8.2)
[2021-12-26 01:11] VITALS: PULSE 54
[2021-12-26 02:16] VITALS: BP 151/79; RESP 22
== END 2021-12-26 02:16 | disposition home or self-care (01) ==
LOC: EC 23:05
DX: R42 Dizziness and giddiness (principal); R55 Syncope and collapse
CPT/HCPCS: 36415; 93005; 80053; 83605; 84484; 85025; 99284; 96374; J2405

== ENCOUNTER → 2022-02-06 | Outpatient (CLI) | payer OTHER ==
--- NOTE | 2022-02-06 10:36 | CT ---
EXAMINATION TYPE: CT brain wo/w con DATE OF EXAM: 02/06/2022 COMPARISON: 09/14/2013 HISTORY: 56-year-old female R55, R42, vertigo, MARQUEZ TECHNIQUE: Examination was done in axial plane before and after intravenous contrast. 100 mL Isovue 300 was administered. Coronal and sagittal reconstructions performed. CT DLP: 1891.0 mGycm Automated exposure control for dose reduction was used. FINDINGS: There is no evidence of acute intracranial hemorrhage, acute ischemic changes, mass, mass-effect, or extra-axial fluid collection. There is no effacement of cerebral sulci or basal subarachnoid cister ns. There is no hydrocephalus. There is no midline shift. Lester-white matter distinction is preserv ed. Dural venous sinuses are patent. No enhancing intracranial lesions. Paranasal sinuses and mastoid air cells are well pneumatized. Orbits and globes are intact. IMPRESSION: No acute intracranial abnormality or enhancing intracranial lesions seen.
== END | disposition home or self-care (01) ==
LOC: RADCTMAIN 08:29
PROVIDERS: ATTEND Family Medicine
DX: R55 Syncope and collapse (principal); R42 Dizziness and giddiness
CPT/HCPCS: 70470; Q9967

== ENCOUNTER → 2022-09-10 | Outpatient (CLI) | payer OTHER ==
--- NOTE | 2022-09-10 10:15 | US ---
EXAMINATION TYPE: US gallbladder DATE OF EXAM: 09/10/2022 COMPARISON: NONE CLINICAL INDICATION: Female, 57 years old with history of R10.11 ABD PAIN; Abdominal pain, GERD TECHNIQUE: Multiple sonographic images of the right upper quadrant are obtained. FINDINGS: EXAM MEASUREMENTS: Liver Length: 12.7 cm Gallbladder Wall: 0.2 cm CBD: 0.5 cm Right Kidney: 9.8 x 4.5 x 3.8 cm SVP OF DIGITAL NOTES: Limitations due to large amount of overlying bowel content Pancreas: Tail obscured by overlying bowel gas Liver: appears wnl as visualized Gallbladder: no evidence of stones as visualized Evidence for sonographic Mckinney's sign: no CBD: wnl Right Kidney: lower pole obscured by overlying bowel content, no evidence of hydronephrosis IMPRESSION: No acute ultrasound abnormality within the abdomen. There is some limitation due to bowel gas.
--- NOTE | 2022-09-10 12:06 | MM ---
Reason for Exam: Screening (asymptomatic). Last mammogram was performed 2 year(s) and 1 month(s) ago. Patient History: Menarche at age 10. First Full-Term at age 17. Left ovary removed at age 50. Right ovary removed at age 50. Hysterectomy at age 50. Postmenopausal. Risk Values: Abbey 5 year model risk: 1.0%. NCI Lifetime model risk: 5.5%. Prior Study Comparison: 07/15/2018 Bilateral Screening Mammogram, [facility]. 07/26/2019 Bilateral Screening Mammogram, [facility]. 08/10/2020 Bilateral Screening Mammogram, [facility]. Tissue Density: The breast tissue is heterogeneously dense. This may lower the sensitivity of mammography. Findings: Analyzed By CAD. There is no suspicious group of microcalcifications or new suspicious mass in either breast. Overall Assessment: Negative, BI-RAD 1 Management: Screening Mammogram of both breasts in 1 year. A clinical breast exam by your physician is recommended on an annual basis and results should be correlated with mammographic findings. Electronically signed and approved by: Diogo Foster D.O.
== END | disposition home or self-care (01) ==
LOC: RADUSWWP 09:35
PROVIDERS: ATTEND Family Medicine
DX: Z12.31 Encounter for screening mammogram for malignant neoplasm of breast (principal); R10.11 Right upper quadrant pain; K21.9 Gastro-esophageal reflux disease without esophagitis; Z78.0 Asymptomatic menopausal state
CPT/HCPCS: 76705; 77067

== ENCOUNTER 2022-09-29 02:25 | Emergency (ER) | payer OTHER ==
[2022-09-29 02:32] VITALS: BP 154/83; PULSE 92; RESP 15; TEMP 98.1
--- NOTE | 2022-09-29 03:17 | ED ---
Abdominal Pain HPI - General Chief Complaint: Abdominal Pain Stated Complaint: pain in lower abd Time Seen by Provider: 09/29/22 03:07 Source: patient Mode of arrival: ambulatory Limitations: no limitations - History of Present Illness Initial Comments: This patient is a 57-year-old woman who presents to have evaluation for intermittent abdominal pains of been going on since early July. The patient had seen her primary physician and had been given course of antibiotic for some lower abdominal pain, mainly suprapubic. At that visit she also had what sounds like breath testing that was positive for Helicobacter, and she did take a course of treatment for that. The patient indicates she has been having some intermittent periumbilical pain associated with of hard feeling at the umbilicus. That is not bothering her currently. She states also that sometimes when she tries to sleep she is not able to lie on her side because she gets flank pain. She indicates both sides bother her from time to time. She has not noted nausea or vomiting. No change in bowel movements or urination. No vaginal bleeding. MD Complaint: abdominal pain Onset/Timin -: month(s) Location: diffuse Migration to: no migration Severity: moderate Quality: aching Consistency: intermittent Improves With: nothing Worsens With: nothing Associated Symptoms: denies other symptoms - Related Data Home Medications Medication Instructions Recorded Confirmed Omeprazole [PriLOSEC] 20 mg PO BID PRN 06/21/17 11/26/21 busPIRone HCl [Buspar] 10 mg PO DAILY PRN 06/21/17 11/26/21 Cholecalciferol [Vitamin D3 (25 25 mcg PO DAILY 11/26/21 11/26/21 Mcg = 1000 Iu)] Furosemide [Lasix] 20 mg PO DAILY 11/26/21 11/26/21 Ibuprofen [Motrin] 600 mg PO DAILY PRN 11/26/21 11/26/21 amLODIPine [Norvasc] 10 mg PO DAILY 11/26/21 11/26/21 Previous Rx's Medication Instructions Recorded Losartan [Cozaar] 100 mg PO DAILY #30 tab 11/27/21 Metoprolol Succinate (ER) [Toprol 100 mg PO DAILY #30 tab 11/27/21 Xl] Famotidine [Pepcid] 20 mg PO BID #14 tablet 09/29/22 Allergies Allergy/AdvReac Type Severity Reaction Status Date / Time ciprofloxacin Allergy Abdominal Verified 09/29/22 02:32 Pain Review of Systems ROS Statement: Those systems with pertinent positive or pertinent negative responses have been documented in the HPI. ROS Other: All systems not noted in ROS Statement are negative. Constitutional: Denies: fever, chills Respiratory: Denies: cough, dyspnea Cardiovascular: Denies: chest pain, palpitations Gastrointestinal: Reports: abdominal pain. Denies: nausea, vomiting, diarrhea, constipation Genitourinary: Denies: dysuria, frequency, hematuria Musculoskeletal: Denies: back pain Skin: Denies: rash Neurological: Denies: headache, weakness Past Medical History Past Medical History: GERD/Reflux, Hypertension Additional Past Medical History / Comment(s): Frequent headaches, occasional edema bilateral feet/ankles/hands, vertigo, hypokalemia, anemia, costrochondritis. History of Any Multi-Drug Resistant Organisms: None Reported Past Surgical History: Hysterectomy, Tubal Ligation Additional Past Surgical History / Comment(s): Robot assisted hysterectomy, D&Cs, L foot bunionectomy Past Anesthesia/Blood Transfusion Reactions: No Reported Reaction Past Psychological History: Anxiety, Depression Smoking Status: Never smoker Past Alcohol Use History: None Reported Past Drug Use History: None Reported - Past Family History Father Family Medical History: Congestive Heart Failure ([place]), Myocardial Infarction ([place]) Additional Family Medical History / Comment(s): Father is . Mother Family Medical History: Congestive Heart Failure ([place]), Myocardial Infarction ([place]) Additional Family Medical History / Comment(s): Mother of chf at the age of 86yrs. General Exam Limitations: no limitations General appearance: alert, in no apparent distress Head exam: Present: atraumatic, normocephalic Eye exam: Present: normal appearance. Absent: scleral icterus, conjunctival injection Neck exam: Present: normal inspection Respiratory exam: Present: normal lung sounds bilaterally. Absent: respiratory distress, wheezes, rales, rhonchi, stridor Cardiovascular Exam: Present: regular rate, normal rhythm, normal heart sounds. Absent: systolic murmur, diastolic murmur, rubs, gallop GI/Abdominal exam: Present: soft, hernia. Absent: distended, tenderness, guarding, rebound, rigid, mass, pulsatile mass Extremities exam: Present: normal inspection, normal capillary refill. Absent: pedal edema, calf tenderness Back exam: Present: normal inspection. Absent: CVA tenderness (R), CVA tenderness (L) Neurological exam: Present: alert Skin exam: Present: warm, dry, intact, normal color. Absent: rash Course Vital Signs 09/29/22 02:29 Temperature 98.1 F Pulse Rate 92 Respiratory 15 Rate Blood Pressure 154/83 O2 Sat by Pulse 100 Oximetry Medical Decision Making - Medical Decision Making This patient 57-year-old woman presenting with many weeks of abdominal pain. The physical exam and laboratory workup here is unremarkable, there is no concern for acute surgical condition at this point. Given that the patient had what sounds like a positive Helicobacter breath test, will have her follow with gastroenterology for endoscopy. We discussed appropriate further care and follow-up as well as return parameters. Was pt. sent in by a medical professional or institution (, [facility], BUILDING INSULATION INSTALLER, urgent care, hospital, or residential...) When possible be specific @ -[No] Did you speak to anyone other than the patient for history (EMS, parent, family, police, friend...)? What history was obtained from this source @ -[No] Did you review nursing and triage notes (agree or disagree)? Why? @ -[I reviewed and agree with nursing and triage notes] Were old charts reviewed (outside hosp., previous admission, EMS record, old EKG , old radiological studies, urgent care reports/EKG's, residential records)? Report findings @ -[No old charts were reviewed] Differential Diagnosis (chest pain, altered mental status, abdominal pain women, abdominal pain men, vaginal bleeding, weakness, fever, dyspnea, syncope, headache, dizziness, GI bleed, back pain, seizure, CVA, palpatations, mental hea lth, musculoskeletal)? @ -[Differential Abdominal Pain Women: Appendicitis, Cholecystitis, diverticulosis, ischemic bowel, pancreatitis, hepatitis, UTI, gastroenteritis, AAA, incarcerated hernia, bowel obstruction, constipation, inflammatory bowel, hepatitis, peptic ulcer disease, splenic infarction, perforated viscus, vulvitis, ovarian torsion, PID, kidney stone, placenta abruption, this is not meant to be an all-inclusive list EKG interpreted by me (3pts min.). @ -[ X-rays interpreted by me (1pt min.). @ -[None done] CT interpreted by me (1pt min.). @ -[None done] U/S interpreted by me (1pt. min.). @ -[None done] What testing was considered but not performed or refused? (CT, X-rays, U/S, labs)? Why? @ -[None] What meds were considered but not given or refused? Why? @ -[None] Did you discuss the management of the patient with other professionals (professionals i.e. , PA, BUILDING INSULATION INSTALLER, lab, RT, psych nurse, clinical social work aide, procurement manager, teacher, loan officer, casework manager)? Give summary @ -[No] Was smoking cessation discussed for >3mins.? @ -[No] Was critical care preformed (if so, how long)? @ -[No] Were there social determinants of health that impacted care today? How? (Homelessness, low income, unemployed, alcoholism, drug addiction, transportation, low edu. Level, literacy, decrease access to med. care, prison, rehab)? @ -[No] Was there de-escalation of care discussed even if they declined (Discuss DNR or withdrawal of care, Hospice)? DNR status @ -[No] What co-morbidities impacted this encounter? (DM, HTN, Smoking, COPD, CAD, Cancer, CVA, ARF, Chemo, Hep., AIDS, mental health diagnosis, sleep apnea, morbid obesity)? @ -[None] Was patient admitted / discharged? Hospital course, mention meds given and route, prescriptions, significant lab abnormalities, going to OR and other pertinent info. @ -[The patient is stable for discharge to continue as outpatient Undiagnosed new problem with uncertain prognosis? @ -[No] Drug Therapy requiring intensive monitoring for toxicity (Heparin, Nitro, Insulin, Cardizem)? @ -[No] Were any procedures done? @ -[No] Diagnosis/symptom? @ -[Acute abdominal pain Acute, or Chronic, or Acute on Chronic? @ -[default] Uncomplicated (without systemic symptoms) or Complicated (systemic symptoms)? @ -[Uncomplicated Side effects of treatment? @ -[No] Exacerbation, Progression, or Severe Exacerbation? @ -[No] Poses a threat to life or bodily function? How? (Chest pain, [place], [place], pneumonia, PE, COPD, DKA, ARF, appy, cholecystitis, CVA, Diverticulitis, Homicidal, Suicidal, threat to staff... and all critical care pts) @ -[No] - Lab Data Result diagrams: 09/29/22 03:20 09/29/22 03:20 Lab Results 09/29/22 09/29/22 09/29/22 Range/Units 03:20 03:20 03:20 WBC 9.7 (3.8-10.6) k/uL RBC 5.23 (3.80-5.40) m/uL Hgb 14.5 (11.4-16.0) gm/dL Hct 44.0 (34.0-46.0) % MCV 84.1 (80.0-100.0) fL MCH 27.7 (25.0-35.0) pg MCHC 32.9 (31.0-37.0) g/dL RDW 13.7 (11.5-15.5) % Plt Count 187 (150-450) k/uL MPV 8.9 Neutrophils % 71 % Lymphocytes % 22 % Monocytes % 5 % Eosinophils % 1 % Basophils % 0 % Neutrophils # 6.9 (1.3-7.7) k/uL Lymphocytes # 2.1 (1.0-4.8) k/uL Monocytes # 0.5 (0-1.0) k/uL Eosinophils # 0.1 (0-0.7) k/uL Basophils # 0.0 (0-0.2) k/uL Sodium 140 (137-145) mmol/L Potassium 3.7 (3.5-5.1) mmol/L Chloride 101 (98-107) mmol/L Carbon Dioxide 26 (22-30) mmol/L Anion Gap 13 mmol/L BUN 14 (7-17) mg/dL Creatinine 0.95 (0.52-1.04) mg/dL Est GFR (CKD-EPI)AfAm 76 (>60 ml/min/1.73 sqM) Est GFR (CKD-EPI)NonAf 66 (>60 ml/min/1.73 sqM) Glucose 106 H (74-99) mg/dL Calcium 9.2 (8.4-10.2) mg/dL Total Bilirubin 1.0 (0.2-1.3) mg/dL AST 21 (14-36) U/L ALT 17 (4-34) U/L Alkaline Phosphatase 95 (38-126) U/L Total Protein 7.4 (6.3-8.2) g/dL Albumin 4.3 (3.5-5.0) g/dL Amylase 60 (30-110) U/L Lipase 82 (23-300) U/L Urine Color Light Yellow Urine Appearance Clear (Clear) Urine pH 7.0 (5.0-8.0) Ur Specific [place] 1.015 (1.001-1.035) Urine Protein Trace H (Negative) Urine Glucose (UA) Negative (Negative) Urine Ketones Negative (Negative) Urine Blood Negative (Negative) Urine Nitrite Negative (Negative) Urine Bilirubin Negative (Negative) Urine Urobilinogen <2.0 (<2.0) mg/dL Ur Leukocyte Esterase Negative (Negative) Disposition Clinical Impression: Abdominal pain Disposition: HOME SELF-CARE Condition: Good Instructions (If sedation given, give patient instructions): Abdominal Pain (ED) Prescriptions: Famotidine [Pepcid] 20 mg PO BID #14 tablet Is patient prescribed a controlled substance at d/c from ED?: No Referrals: Chaparro Horne MD [Primary Care Provider] - 1-2 days Veronica Escamilla MD [STAFF PHYSICIAN] - 1-2 days
[2022-09-29 03:41] LABS: Appearance,Urine Clear (Clear); Bilirubin,Urine Negative (Negative); Blood,Urine Negative (Negative); Color,Urine Light Yellow; Glucose,Urine (UA) Negative (Negative); Ketones,Urine Negative (Negative); Leukocyte Esterase,Urine Negative (Negative); Nitrite,Urine Negative (Negative); Protein,Urine Trace (Negative); Specific Gravity,Urine 1.015 (1.001-1.035); Urobilinogen,Urine <2.0 mg/dL (<2.0)
[2022-09-29 03:42] LABS: Basophils % (A) 0 %; Eosinophils # (A) 0.1 k/uL (0-0.7); Eosinophils % (A) 1 %; HGB 14.5 gm/dL (11.4-16.0); Lymphocytes # (A) 2.1 k/uL (1.0-4.8); Lymphocytes % (A) 22 %; MCH 27.7 pg (25.0-35.0); MCHC 32.9 g/dL (31.0-37.0); MCV 84.1 fL (80.0-100.0); Mean Platelet Volume 8.9; Monocytes # (A) 0.5 k/uL (0-1.0); Monocytes % (A) 5 %; Neutrophils # (A) 6.9 k/uL (1.3-7.7); Neutrophils % (A) 71 %; Platelet Count 187 k/uL (150-450); RBC 5.23 m/uL (3.80-5.40); RDW 13.7 % (11.5-15.5); WBC 9.7 k/uL (3.8-10.6)
[2022-09-29 03:55] LABS: Albumin 4.3 g/dL (3.5-5.0); Total Protein 7.4 g/dL (6.3-8.2)
[2022-09-29 03:56] LABS: Calcium 9.2 mg/dL (8.4-10.2); Potassium 3.7 mmol/L (3.5-5.1)
[2022-09-29] MEDS ORDERED: MAG HYDROX/AL HYDROX/SIMETH 30 ML, HYOSCYAMINE ELIXIR 10 ML, LIDOCAINE 2% GLYDO JELLY 1... PO STA ×3 (04:02)
== END 2022-09-29 04:50 | disposition home or self-care (01) ==
LOC: EC 02:25
DX: R10.9 Unspecified abdominal pain (principal); I10 Essential (primary) hypertension; K21.9 Gastro-esophageal reflux disease without esophagitis; F41.9 Anxiety disorder, unspecified; F32.A Depression, unspecified; Z79.899 Other long term (current) drug therapy; Z88.8 Allergy status to other drugs, medicaments and biological substances
CPT/HCPCS: 36415; 80053; 81003; 82150; 83690; 85025; 99284

== ENCOUNTER → 2022-10-07 | Outpatient (CLI) | payer OTHER ==
--- NOTE | 2022-10-08 10:55 | CT ---
EXAMINATION TYPE: CT abdomen wo/w con DATE OF EXAM: 10/08/2022 COMPARISON: 12/08/2015 HISTORY: 57-year-old female with hematuria and flank pain TECHNIQUE: Contiguous axial scanning of the abdomen before and after administration of 100 ml Omnipaq ue 300 IV contrast. Delayed images through the kidneys and coronal/sagittal reconstructions performe d. CT DLP: 1138.2 mGycm Automated exposure control for dose reduction was used. FINDINGS: The heart is upper limits of normal in size without pericardial effusion. Some strandy atelectasis in the lower lungs without pleural effusion. Tiny hiatal hernia. No focal liver lesion or biliary ductal dilatation. Portal venous system is patent. Gallbladder, adrenal glands, spleen, and pancreas within normal limits. No nephrolithiasis or hydronephrosis. There is symmetric uptake and excretion of contrast from both k idneys. A few scattered renal cortical cysts measuring up to 2.8 cm on the right. No suspicious renal mass is seen. No dilated small bowel, free fluid, or free air. No mesenteric or retroperitoneal lymphadenopathy. No pericolonic inflammatory change. Some chronic submucosal fat deposition noted throughout the visua lized colon suggesting bouts of prior inflammation or idiopathic fat deposition. Pelvis not imaged. Bones: Moderate degenerative disc disease L4-L5. Facet arthropathy lower lumbar spine. IMPRESSION: 1. NO NEPHROLITHIASIS OR HYDRONEPHROSIS. 2. A FEW BENIGN RENAL CORTICAL CYSTS MEASURING UP TO 2.8 CM. 3. TINY HIATAL HERNIA. 4. SOME CHRONIC SUBMUCOSAL FAT DEPOSITION NOTED THROUGHOUT THE VISUALIZED COLON SUGGESTING BOUTS OF P RIOR INFLAMMATION VERSUS IDIOPATHIC FAT DEPOSITION.
== END | disposition home or self-care (01) ==
LOC: RADCTMAIN 13:47
PROVIDERS: ATTEND Family Medicine
DX: N28.1 Cyst of kidney, acquired (principal); K44.9 Diaphragmatic hernia without obstruction or gangrene; K63.89 Other specified diseases of intestine
CPT/HCPCS: 74170; Q9967

== ENCOUNTER → 2023-09-21 | Outpatient (CLI) | payer OTHER ==
--- NOTE | 2023-09-21 15:24 | MM ---
Reason for Exam: Screening (asymptomatic). Last screening mammogram was performed 12 month(s) ago. Patient History: Menarche at age 10. First Full-Term at age 17. Left ovary removed at age 50. Right ovary removed at age 50. Hysterectomy at age 50. Postmenopausal. Risk Values: Abbey 5 year model risk: 1.0%. NCI Lifetime model risk: 5.3%. Prior Study Comparison: 07/26/2019 Bilateral Screening Mammogram, [facility]. 08/10/2020 Bilateral Screening Mammogram, [facility]. 09/10/2022 Bilateral MG screening mammo w CAD, [facility]. Tissue Density: There are scattered areas of fibroglandular density. Findings: Analyzed By CAD. Right breast: There is no suspicious group of microcalcifications or new suspicious mass. Left breast: There is no suspicious group of microcalcifications or new suspicious mass. Overall Assessment: Negative, BI-RAD 1 Management: Screening Mammogram of both breasts in [address] [facility] will attempt to contact patient to return for supplemental views and ultrasound if indicated. Patient should continue monthly self-breast exams. A clinical breast exam by your physician is recommended on an annual basis. This exam should not preclude additional follow-up of suspicious palpable abnormalities. Note on Abbey scores and lifetime risk: 1. A Abbey score greater than 3% is considered moderate risk. If this is the case, consider specialist referral to assess eligibility for a risk reducing agent. 2. If overall lifetime risk for the development of breast cancer is 20% or higher, the patient may qualify for future screening with alternating mammogram and breast MRI. Electronically signed and approved by: Sherman Cornelius DO
== END | disposition home or self-care (01) ==
LOC: RADMAMWWP 10:39
PROVIDERS: ATTEND Family Medicine
DX: Z12.31 Encounter for screening mammogram for malignant neoplasm of breast (principal); Z78.0 Asymptomatic menopausal state
CPT/HCPCS: 77067

== ENCOUNTER 2023-10-14 09:29 | Emergency (ER) | payer OTHER ==
--- NOTE | 2023-10-14 10:34 | ED ---
Headache HPI - General Chief Complaint: Upper Respiratory Infection Stated Complaint: Hypertension Time Seen by Provider: 10/14/23 10:23 Source: patient, RN notes reviewed Mode of arrival: ambulatory Limitations: no limitations - History of Present Illness Initial Comments: This is a 58-year-old female who presents to the emergency department for headaches and elevated blood pressure. Patient states that she has had pain and pressure in the back of her head as well as feelings of her ears being plugged, postnasal drip, and a sore throat for the last 3 to 4 days. She saw her primary care provider today, and was started on Chitra for concerns of allergies. Her PCP advised that her blood pressure was very high and instructed her to come to the emergency department for further evaluation. Believes that she takes lisinopril and amlodipine for management of her blood pressure, which she states she has been compliant with. Unsure what the doses are. Also unsure when she last had her blood pressure checked prior to today, but states that it is not typically this high. Denies any chest pain or shortness of breath. Also denies any visual changes or dizziness. MD Complaint: headache - Related Data Home Medications Medication Instructions Recorded Confirmed Omeprazole [PriLOSEC] 20 mg PO BID PRN 06/21/17 11/26/21 busPIRone HCl [Buspar] 10 mg PO DAILY PRN 06/21/17 11/26/21 Cholecalciferol [Vitamin D3 (25 25 mcg PO DAILY 11/26/21 11/26/21 Mcg = 1000 Iu)] Furosemide [Lasix] 20 mg PO DAILY 11/26/21 11/26/21 Ibuprofen [Motrin] 600 mg PO DAILY PRN 11/26/21 11/26/21 amLODIPine [Norvasc] 10 mg PO DAILY 11/26/21 11/26/21 Previous Rx's Medication Instructions Recorded Losartan [Cozaar] 100 mg PO DAILY #30 tab 11/27/21 Metoprolol Succinate (ER) [Toprol 100 mg PO DAILY #30 tab 11/27/21 Xl] Famotidine [Pepcid] 20 mg PO BID #14 tablet 09/29/22 Ipratropium [place] 0.06%Nasal 2 spray EA NOSTRIL TID #15 ml 10/14/23 [Atrovent Nasal 0.06%] Ketorolac [Toradol] 10 mg PO Q6HR PRN #15 tab 10/14/23 Nirmatrelvir/Ritonavir [Paxlovid 1 pack PO BID 5 Days #30 tab 10/14/23 300-100 mg Dose Pack] Allergies Allergy/AdvReac Type Severity Reaction Status Date / Time ciprofloxacin Allergy Abdominal Verified 09/29/22 02:32 Pain Review of Systems ROS Statement: Those systems with pertinent positive or pertinent negative responses have been documented in the HPI. ROS Other: All systems not noted in ROS Statement are negative. Past Medical History Past Medical History: GERD/Reflux, Hypertension Additional Past Medical History / Comment(s): Frequent headaches, occasional edema bilateral feet/ankles/hands, vertigo, hypokalemia, anemia, costrochon dritis. History of Any Multi-Drug Resistant Organisms: None Reported Past Surgical History: Hysterectomy, Tubal Ligation Additional Past Surgical History / Comment(s): Robot assisted hysterectomy, D&Cs, L foot bunionectomy Past Anesthesia/Blood Transfusion Reactions: No Reported Reaction Past Psychological History: Anxiety, Depression Smoking Status: Never smoker Past Alcohol Use History: None Reported Past Drug Use History: None Reported - Past Family History Father Family Medical History: Congestive Heart Failure (CHF), Myocardial Infarction ([place]) Additional Family Medical History / Comment(s): Father is . Mother Family Medical History: Congestive Heart Failure (CHF), Myocardial Infarction ([place]) Additional Family Medical History / Comment(s): Mother of chf at the age of 86yrs. General Exam Limitations: no limitations General appearance: alert, in no apparent distress Head exam: Present: atraumatic, normocephalic, normal inspection Eye exam: Present: normal appearance, PERRL, EOMI. Absent: scleral icterus, conjunctival injection, periorbital swelling Respiratory exam: Present: normal lung sounds bilaterally. Absent: respiratory distress, wheezes, rales, rhonchi, stridor Cardiovascular Exam: Present: regular rate, normal rhythm, normal heart sounds. Absent: systolic murmur, diastolic murmur, rubs, gallop, clicks Neurological exam: Present: alert, oriented X3, CN II-XII intact Psychiatric exam: Present: normal affect, normal mood Skin exam: Present: warm, dry, intact, normal color. Absent: rash Course Vital Signs 10/14/23 10/14/23 10/14/23 09:49 11:15 11:21 Temperature 98.8 F Pulse Rate 94 79 68 Respiratory 16 18 17 Rate Blood Pressure 215/99 202/106 182/98 O2 Sat by Pulse 98 97 97 Oximetry 10/14/23 10/14/23 10/14/23 11:46 12:00 12:33 Temperature Pulse Rate 68 67 Respiratory 17 Rate Blood Pressure 188/85 182/104 144/95 O2 Sat by Pulse 97 Oximetry 10/14/23 10/14/23 10/14/23 13:00 13:52 14:08 Temperature Pulse Rate 64 65 Respiratory 17 Rate Blood Pressure 192/93 187/83 184/93 O2 Sat by Pulse 98 98 Oximetry 10/14/23 14:54 Temperature Pulse Rate 67 Respiratory 18 Rate Blood Pressure 174/92 O2 Sat by Pulse 98 Oximetry Medical Decision Making - Medical Decision Making This is a 58-year-old female who presents to the emergency department for headaches and elevated blood pressure. Was pt. sent in by a medical professional or institution? @ -Her PCP Did you speak to anyone other than the patient for history? @ -No Did you review nursing and triage notes? @ -Yes, and I agree, it is accurate with regards to the patient's symptoms. Were old charts reviewed? @ -No Differential Diagnosis? @ -Differential Headache: Migraine, tension, cluster, carbon monoxide, central venous thrombosis, pension karma temporal arteritis, acute closure glaucoma, intercranial hemorrhage, mastoiditis, sinusitis, head injury, this is not meant to be an all-inclusive list. EKG interpreted by me (3pts min.)? @ -EKG interpreted by me demonstrating the following: Sinus rhythm. Ventricular rate 68 bpm, ND interval 141 ms, QRS duration 80 ms, QTc 388 ms. X-rays interpreted by me (1pt min.)? @ -Not obtained CT interpreted by me (1pt min.)? @ -CT scan of the brain obtained. My interpretation identifies no evidence of an acute intracranial hemorrhage. U/S interpreted by me (1pt. min.)? @ -Not obtained What testing was considered but not performed? (CT, X-rays, U/S, labs)? Why? @ -None What meds were considered but not given? Why? @ -None Did you discuss the management of the patient with other professionals? @ -No Did you reconcile home meds? @ -No Was smoking cessation discussed for >3mins.? @ -No Was critical care preformed (if so, how long)? @ -No Were there social determinants of health that impacted care today? How? (Homelessness, low income, unemployed, alcoholism, drug addiction, transportation, low edu. Level, literacy, decrease access to med. care, care home, rehab)? @ -No Was there de-escalation of care discussed even if they declined? (Discuss DNR or withdrawal of care, Hospice)? @ -No What co-morbidities impacted this encounter? (DM, HTN, Smoking, COPD, CAD, Cancer, CVA, Hep., AIDS, mental health diagnosis, sleep apnea, morbid obesity)? @ -HTN Was patient admitted / discharged? @ -Discharged. Lab work unremarkable. Urinalysis negative for signs of infection. Patient positive for COVID-19. Influenza, RSV, and rapid strep testing negative. CT scan of the brain obtained revealing no acute process. Her blood pressure was 215/99 on arrival. She was managed with labetalol and hydralazine and we were able to successfully reduce her blood pressure. Headache was managed in the emergency department as well. Patient request to proceed with antiviral management for COVID-19. Prescription for Paxlovid as well as Toradol and ipratropium nasal spray provided with dosing instructions reviewed for management of both COVID and the patient's symptoms. Given that the patient is not sure what blood pressure medication she is taking or the dosing, we will not make any adjustments at this time. The COVID may also be contributing to this. She is advised to check her blood pressure at home several times each day and keep a log of these values as well as have close follow-up with her primary care provider. Patient discharged home in stable condition. Undiagnosed new problem with uncertain prognosis? @ -None Drug Therapy requiring intensive monitoring for toxicity (Heparin, Nitro, Insulin, Cardizem)? @ -None Were any procedures done? @ -None Diagnosis/symptom? @ -COVID-19, headache Acute, or Chronic, or Acute on Chronic? @ -Acute Uncomplicated (without systemic symptoms) or Complicated (systemic symptoms)? @ -Uncomplicated Side effects of treatment? @ -None Exacerbation, Progression, or Severe Exacerbation] @ -Not applicable Poses a threat to life or bodily function? @ -No Diagnosis/symptom? @ -Hypertension Acute, or Chronic, or Acute on Chronic? @ -Chronic Uncomplicated (without systemic symptoms) or Complicated (systemic symptoms)? @ -Uncomplicated Side effects of treatment? @ -None Exacerbation, Progression, or Severe Exacerbation] @ -Progression Poses a threat to life or bodily function? @ -If this continues to elevate or cannot be controlled, it increases her risk for heart attacks and strokes. Return precautions reviewed in depth, the patient is instructed to return to the emergency department with any new, worsening, or concerning symptoms. Patient verbalized understanding. This case was discussed in detail with the attending ED physician, Dr. Weaver. Presentation, findings, and treatment plan discussed in detail as well. - Lab Data Result diagrams: 10/14/23 10:47 10/14/23 10:47 Lab Results 10/14/23 10/14/23 10/14/23 Range/Units 10:47 10:47 10:47 WBC 7.9 (3.8-10.6) k/uL RBC 5.41 H (3.80-5.40) m/uL Hgb 15.4 (11.4-16.0) gm/dL Hct 47.7 H (34.0-46.0) % MCV 88.1 (80.0-100.0) fL MCH 28.4 (25.0-35.0) pg MCHC 32.3 (31.0-37.0) g/dL RDW 13.2 (11.5-15.5) % Plt Count 183 (150-450) k/uL MPV 8.6 Neutrophils % 79 % Lymphocytes % 12 % Monocytes % 7 % Eosinophils % 1 % Basophils % 0 % Neutrophils # 6.2 (1.3-7.7) k/uL Lymphocytes # 1.0 (1.0-4.8) k/uL Monocytes # 0.5 (0-1.0) k/uL Eosinophils # 0.1 (0-0.7) k/uL Basophils # 0.0 (0-0.2) k/uL PT 9.9 L (10.0-12.5) sec INR 0.9 (<1.2) APTT 25.6 (22.0-30.0) sec Sodium 140 (137-145) mmol/L Potassium 3.9 (3.5-5.1) mmol/L Chloride 105 (98-107) mmol/L Carbon Dioxide 28 (22-30) mmol/L Anion Gap 7 mmol/L BUN 10 (7-17) mg/dL Creatinine 0.75 (0.52-1.04) mg/dL Est GFR (CKD-EPI)AfAm >90 (>60 ml/min/1.73 sqM) Est GFR (CKD-EPI)NonAf 87 (>60 ml/min/1.73 sqM) Glucose 103 H (74-99) mg/dL Calcium 9.3 (8.4-10.2) mg/dL Magnesium 2.0 (1.6-2.3) mg/dL Total Bilirubin 1.5 H (0.2-1.3) mg/dL AST 26 (14-36) U/L ALT 21 (4-34) U/L Alkaline Phosphatase 103 (38-126) U/L Troponin I (0.000-0.034) ng/mL Total Protein 7.7 (6.3-8.2) g/dL Albumin 4.4 (3.5-5.0) g/dL Influenza Type A (PCR) (Not Detectd) Influenza Type B (PCR) (Not Detectd) RSV (PCR) (Not Detectd) SARS-CoV-2 (PCR) (Not Detectd) Group A Strep (PCR) (Not Detectd) 10/14/23 10/14/23 10/14/23 Range/Units 10:47 11:20 11:45 WBC (3.8-10.6) k/uL RBC (3.80-5.40) m/uL Hgb (11.4-16.0) gm/dL Hct (34.0-46.0) % MCV (80.0-100.0) fL MCH (25.0-35.0) pg MCHC (31.0-37.0) g/dL RDW (11.5-15.5) % Plt Count (150-450) k/uL MPV Neutrophils % % Lymphocytes % % Monocytes % % Eosinophils % % Basophils % % Neutrophils # (1.3-7.7) k/uL Lymphocytes # (1.0-4.8) k/uL Monocytes # (0-1.0) k/uL Eosinophils # (0-0.7) k/uL Basophils # (0-0.2) k/uL PT (10.0-12.5) sec INR (<1.2) APTT (22.0-30.0) sec Sodium (137-145) mmol/L Potassium (3.5-5.1) mmol/L Chloride (98-107) mmol/L Carbon Dioxide (22-30) mmol/L Anion Gap mmol/L BUN (7-17) mg/dL Creatinine (0.52-1.04) mg/dL Est GFR (CKD-EPI)AfAm (>60 ml/min/1.73 sqM) Est GFR (CKD-EPI)NonAf (>60 ml/min/1.73 sqM) Glucose (74-99) mg/dL Calcium (8.4-10.2) mg/dL Magnesium (1.6-2.3) mg/dL Total Bilirubin (0.2-1.3) mg/dL AST (14-36) U/L ALT (4-34) U/L Alkaline Phosphatase (38-126) U/L Troponin I <0.012 (0.000-0.034) ng/mL Total Protein (6.3-8.2) g/dL Albumin (3.5-5.0) g/dL Influenza Type A (PCR) Not Detected (Not Detectd) Influenza Type B (PCR) Not Detected (Not Detectd) RSV (PCR) Not Detected (Not Detectd) SARS-CoV-2 (PCR) Detected A (Not Detectd) Group A Strep (PCR) NOT DETECTED (Not Detectd) - Radiology Data Radiology results: report reviewed, image reviewed Disposition Clinical Impression: Hypertension, COVID-19, Headache Disposition: HOME SELF-CARE Instructions (If sedation given, give patient instructions): Acute Headache (ED), COVID-19 (Coronavirus Disease 2019) (ED) Additional Instructions: Return to the emergency department with any new, worsening, or concerning symptoms. Take the Paxlovid as prescribed for 5 days. Take the Toradol with Tylenol as needed for pain relief. If you choose to take the Toradol, do not take any other anti-inflammatories such as ibuprofen, take one or the other. Use the nasal spray as 2 sprays in each nostril 3 times daily to help with postnasal drip and other symptoms. Check your blood pressure at home several times a day and keep a log of these values. Follow up with your primary care provider in 1-2 days. Prescriptions: Ipratropium [place] 0.06%Nasal [Atrovent Nasal 0.06%] 2 spray EA NOSTRIL TID #15 ml Nirmatrelvir/Ritonavir [Paxlovid 300-100 mg Dose Pack] 1 pack PO BID 5 Days #30 tab Ketorolac [Toradol] 10 mg PO Q6HR PRN #15 tab PRN Reason: Pain Is patient prescribed a controlled substance at d/c from ED?: No Referrals: Chaparro Horne MD [Primary Care Provider] - 1-2 days Time of Disposition: 12:49
[2023-10-14 11:00] LABS: Basophils % (A) 0 %; Eosinophils # (A) 0.1 k/uL (0-0.7); Eosinophils % (A) 1 %; HCT 47.7 % (34.0-46.0); HGB 15.4 gm/dL (11.4-16.0); Lymphocytes % (A) 12 %; MCH 28.4 pg (25.0-35.0); MCHC 32.3 g/dL (31.0-37.0); MCV 88.1 fL (80.0-100.0); Mean Platelet Volume 8.6; Monocytes # (A) 0.5 k/uL (0-1.0); Monocytes % (A) 7 %; Neutrophils # (A) 6.2 k/uL (1.3-7.7); Neutrophils % (A) 79 %; Platelet Count 183 k/uL (150-450); RBC 5.41 m/uL (3.80-5.40); RDW 13.2 % (11.5-15.5); WBC 7.9 k/uL (3.8-10.6)
[2023-10-14] MEDS: ACETAMINOPHEN TAB 500 MG TAB PO STA (11:16)
[2023-10-14] MEDS: LABETALOL 5 MG/ML VIAL MDV IVP STA ×4 (11:16→13:53)
[2023-10-14] MEDS: KETOROLAC 15 MG/ML 1 ML VIAL IVP STA (11:16)
[2023-10-14 11:24] LABS: INR 0.9 (<1.2); Partial Thromboplastin Time 25.6 sec (22.0-30.0); Prothrombin Time 9.9 sec (10.0-12.5)
[2023-10-14 11:29] LABS: ALT 21 U/L (4-34); AST 26 U/L (14-36); African American GFR (CKD) >90 (>60 ml/min/1.73 sqM); Albumin 4.4 g/dL (3.5-5.0); Alkaline Phosphatase 103 U/L (38-126); Anion Gap 7 mmol/L; Blood Urea Nitrogen 10 mg/dL (7-17); Calcium 9.3 mg/dL (8.4-10.2); Carbon Dioxide 28 mmol/L (22-30); Chloride 105 mmol/L (98-107); Glucose 103 mg/dL (74-99); Non-African American GFR(CKD) 87 (>60 ml/min/1.73 sqM); Potassium 3.9 mmol/L (3.5-5.1); Sodium 140 mmol/L (137-145); Total Bilirubin 1.5 mg/dL (0.2-1.3); Total Protein 7.7 g/dL (6.3-8.2)
--- NOTE | 2023-10-14 11:29 | CT ---
EXAMINATION TYPE: CT brain wo con CT DLP: 1095.4 mGycm, Automated exposure control for dose reduction was used. DATE OF EXAM: 10/14/2023 11:19 AM COMPARISON: 02/06/2022. CLINICAL INDICATION:Female, 58 years old with history of Headache, HTN, Headache, HTN TECHNIQUE: Brain: Axial CT images of the brain were obtained with coronal and sagittal reformats created and rev iewed. Contrast used: None. Oral contrast used: None. FINDINGS: Brain: Extra-axial spaces: No abnormal extra-axial fluid collections. Ventricular system: Within normal limits Cerebral parenchyma: No acute intraparenchymal hemorrhage or mass effect. The thao-white junction is well differentiated. Cerebellum: Unremarkable. Mass effect: No evidence of midline shift. Intracranial vasculature: unremarkable Soft tissues: Normal. Calvarium/osseous structures: No depressed skull fracture. Paranasal sinuses and mastoid air cells: Mild scattered paranasal sinus disease. Visualized orbits: Orbital contents are intact. IMPRESSION: No acute intracranial process.
[2023-10-14 11:36] VITALS: TEMP 98.8
[2023-10-14] MEDS: DEXAMETHASONE SOD PHOSPHATE 10 MG/ML 1 ML VIAL IVP STA (13:05)
[2023-10-14] MEDS: ACET/COD 300 MG/30 MG STARTER PACK 6 TAB BTL PO STA (13:06)
[2023-10-14] MEDS: hydrALAZINE HCL 20 MG/ML 1 ML VIAL IVP STA (14:47)
[2023-10-14 15:32] VITALS: BP 174/92; PULSE 67; RESP 18
== END 2023-10-14 14:58 | disposition home or self-care (01) ==
LOC: EC 09:29
DX: U07.1 COVID-19 (principal); I10 Essential (primary) hypertension; Z88.8 Allergy status to other drugs, medicaments and biological substances; Z79.899 Other long term (current) drug therapy
CPT/HCPCS: 36415; 93005; 87651; 80053; 83735; 84484; 85025; 85610; 85730; 87636; 70450; 99284; 96374; 96375 ×3; 96376 ×3; J0360; J1100; J1885; J1920

== ENCOUNTER 2023-11-26 10:18 | Emergency (ER) | payer OTHER ==
[2023-11-26 10:26] VITALS: RESP 18
[2023-11-26] MEDS: KETOROLAC 15 MG/ML 1 ML VIAL IVP STA (10:46)
[2023-11-26] MEDS: SODIUM CHLORIDE 0.9% 1,000 ML IV STA (10:48)
[2023-11-26 10:54] LABS: Basophils % (A) 0 %; Eosinophils # (A) 0.1 k/uL (0-0.7); Eosinophils % (A) 1 %; HCT 43.4 % (34.0-46.0); Lymphocytes # (A) 1.8 k/uL (1.0-4.8); Lymphocytes % (A) 18 %; MCH 30.1 pg (25.0-35.0); MCHC 34.5 g/dL (31.0-37.0); MCV 87.2 fL (80.0-100.0); Mean Platelet Volume 9.1; Monocytes # (A) 0.4 k/uL (0-1.0); Monocytes % (A) 4 %; Neutrophils # (A) 7.4 k/uL (1.3-7.7); Neutrophils % (A) 75 %; Platelet Count 192 k/uL (150-450); RBC 4.98 m/uL (3.80-5.40); RDW 13.6 % (11.5-15.5); WBC 9.9 k/uL (3.8-10.6)
[2023-11-26 11:06] LABS: ALT 10 U/L (4-34); AST 19 U/L (14-36); African American GFR (CKD) >90 (>60 ml/min/1.73 sqM); Albumin 4.4 g/dL (3.5-5.0); Alkaline Phosphatase 101 U/L (38-126); Anion Gap 8 mmol/L; Blood Urea Nitrogen 10 mg/dL (7-17); Calcium 9.4 mg/dL (8.4-10.2); Carbon Dioxide 26 mmol/L (22-30); Chloride 106 mmol/L (98-107); Glucose 114 mg/dL (74-99); Lipase 83 U/L (23-300); Non-African American GFR(CKD) 81 (>60 ml/min/1.73 sqM); Potassium 3.7 mmol/L (3.5-5.1); Sodium 140 mmol/L (137-145); Total Bilirubin 1.6 mg/dL (0.2-1.3); Total Protein 7.1 g/dL (6.3-8.2)
--- NOTE | 2023-11-26 11:09 | ED ---
General Adult HPI - General Chief complaint: Abdominal Pain Stated complaint: L sided abd pain Time Seen by Provider: 11/26/23 10:28 Source: patient, RN notes reviewed, old records reviewed Mode of arrival: ambulatory Limitations: no limitations - History of Present Illness Initial comments: 58-year-old female presenting with 1 month history of lower abdominal pain predominantly on the left. Patient had been treated with antibiotics for possible UTI but states that she was unable to tolerate this medication and discontinued it. She states that although the pain has been there 1 month and was worse this morning and she is awaiting outpatient ultrasound for evaluation but this is not scheduled until 1 week from now. Patient has had some nausea and diarrhea as well. No measured fever. No dysuria. - Related Data Home Medications Medication Instructions Recorded Confirmed Omeprazole [PriLOSEC] 20 mg PO BID PRN 06/21/17 11/26/21 busPIRone HCl [Buspar] 10 mg PO DAILY PRN 06/21/17 11/26/21 Cholecalciferol [Vitamin D3 (25 25 mcg PO DAILY 11/26/21 11/26/21 Mcg = 1000 Iu)] Furosemide [Lasix] 20 mg PO DAILY 11/26/21 11/26/21 Ibuprofen [Motrin] 600 mg PO DAILY PRN 11/26/21 11/26/21 amLODIPine [Norvasc] 10 mg PO DAILY 11/26/21 11/26/21 Previous Rx's Medication Instructions Recorded Losartan [Cozaar] 100 mg PO DAILY #30 tab 11/27/21 Metoprolol Succinate (ER) [Toprol 100 mg PO DAILY #30 tab 11/27/21 Xl] Famotidine [Pepcid] 20 mg PO BID #14 tablet 09/29/22 Ipratropium [place] 0.06%Nasal 2 spray EA NOSTRIL TID #15 ml 10/14/23 [Atrovent Nasal 0.06%] Ketorolac [Toradol] 10 mg PO Q6HR PRN #15 tab 10/14/23 Nirmatrelvir/Ritonavir [Paxlovid 1 pack PO BID 5 Days #30 tab 10/14/23 300-100 mg Dose Pack] Allergies Allergy/AdvReac Type Severity Reaction Status Date / Time cephalexin Allergy Nausea & Verified 11/26/23 10:26 Vomiting ciprofloxacin Allergy Abdominal Verified 09/29/22 02:32 Pain Review of Systems ROS Statement: Those systems with pertinent positive or pertinent negative responses have been documented in the HPI. ROS Other: All systems not noted in ROS Statement are negative. Past Medical History Past Medical History: GERD/Reflux, Hypertension Additional Past Medical History / Comment(s): Frequent headaches, occasional edema bilateral feet/ankles/hands, vertigo, hypokalemia, anemia, costrochondritis. History of Any Multi-Drug Resistant Organisms: None Reported Past Surgical History: Hysterectomy, Tubal Ligation Additional Past Surgical History / Comment(s): Robot assisted hysterectomy,and oopherectomy. D&Cs, L foot bunionectomy Past Anesthesia/Blood Transfusion Reactions: No Reported Reaction Past Psychological History: Anxiety, Depression Smoking Status: Never smoker Past Alcohol Use History: None Reported Past Drug Use History: None Reported - Past Family History Father Family Medical History: Congestive Heart Failure (CHF), Myocardial Infarction ([place]) Additional Family Medical History / Comment(s): Father is . Mother Family Medical History: Congestive Heart Failure (CHF), Myocardial Infarction ([place]) Additional Family Medical History / Comment(s): Mother of chf at the age of 86yrs. General Exam Limitations: no limitations General appearance: alert, in no apparent distress Head exam: Present: atraumatic, normocephalic Eye exam: Present: normal appearance, PERRL ENT exam: Present: normal exam Neck exam: Present: normal inspection. Absent: tenderness, meningismus Respiratory exam: Present: normal lung sounds bilaterally. Absent: respiratory distress, wheezes Cardiovascular Exam: Present: regular rate, normal rhythm GI/Abdominal exam: Present: soft, tenderness (Minimal). Absent: distended, guarding Extremities exam: Present: normal inspection Neurological exam: Present: alert, oriented X3, CN II-XII intact. Absent: motor sensory deficit Psychiatric exam: Present: normal affect, normal mood Skin exam: Present: warm, dry, intact. Absent: cyanosis, diaphoretic Course Vital Signs 11/26/23 10:20 Temperature 98.2 F Pulse Rate 88 Respiratory 18 Rate Blood Pressure 153/90 O2 Sat by Pulse 99 Oximetry Medical Decision Making - Medical Decision Making Was pt. sent in by a medical professional or institution (, PA, CHAIR INSTALLER, urgent care, hospital, or long-term...) When possible be specific @ -No Did you speak to anyone other than the patient for history (EMS, parent, family, police, friend...)? What history was obtained from this source @ -No Did you review nursing and triage notes (agree or disagree)? Why? @ -I reviewed and agree with nursing and triage notes Were old charts reviewed (outside hosp., previous admission, EMS record, old EKG, old radiological studies, urgent care reports/EKG's, long-term records)? Report findings @ -No old charts were reviewed Differential Abdominal Pain Women: Appendicitis, Cholecystitis, diverticulosis, ischemic bowel, pancreatitis, hepatitis, UTI, gastroenteritis, AAA, incarcerated hernia, bowel obstruction, constipation, inflammatory bowel, hepatitis, peptic ulcer disease, splenic infarction, perforated viscus, vulvitis, ovarian torsion, PID, kidney stone, placenta abruption, this is not meant to be an all-inclusive list EKG interpreted by me (3pts min.). @ -As above X-rays interpreted by me (1pt min.). @ -None done CT interpreted by me (1pt min.). @ -CT of the abdomen pelvis with IV contrast is negative for acute process, there is a right renal cyst which may explain the hematuria. No other acute findings. U/S interpreted by me (1pt. min.). @ -None done What testing was considered but not performed or refused? (CT, X-rays, U/S, labs)? Why? @ -None What meds were considered but not given or refused? Why? @ -None Did you discuss the management of the patient with other professionals (professionals i.e. , PA, CHAIR INSTALLER, lab, RT, psych nurse, high school social studies tutor, master cosmetologist, teacher, catapult and arresting gear officer, rifle case repairer)? Give summary @ -No Was smoking cessation discussed for >3mins.? @ -No Was critical care preformed (if so, how long)? @ -No Were there social determinants of health that impacted care today? How? (Homelessness, low income, unemployed, alcoholism, drug addiction, transportation, low edu. Level, literacy, decrease access to med. care, longterm, rehab)? @ -No Was there de-escalation of care discussed even if they declined (Discuss DNR or withdrawal of care, Hospice)? DNR status @ -No What co-morbidities impacted this encounter? (DM, HTN, Smoking, COPD, CAD, Cancer, CVA, ARF, Chemo, Hep., AIDS, mental health diagnosis, sleep apnea, morbid obesity)? @ -None Was patient admitted / discharged? Hospital course, mention meds given and route, prescriptions, significant lab abnormalities, going to OR and other perti nent info. @ -58-year-old female with 1 month history of abdominal pain, worse on the left. Patient has normal CBC without leukocytosis, normal CMP, contaminated urinalysis without signs of significant infection or hematuria. Patient has CT which is negative. Her vital signs are stable. I do feel this patient is stable for continued outpatient evaluation of this pain. Return parameters discussed. Undiagnosed new problem with uncertain prognosis? @ -No Drug Therapy requiring intensive monitoring for toxicity (Heparin, Nitro, Insulin, Cardizem)? @ -No Were any procedures done? @ -No Diagnosis/symptom? @ -Abdominal pain Acute, or Chronic, or Acute on Chronic? @ -Acute Uncomplicated (without systemic symptoms) or Complicated (systemic symptoms)? @ -Default Side effects of treatment? @ -No Exacerbation, Progression, or Severe Exacerbation? @ -No Poses a threat to life or bodily function? How? (Chest pain, [place], [place], pneumonia, PE, COPD, DKA, ARF, appy, cholecystitis, CVA, Diverticulitis, Homicidal, Suicidal, threat to staff... and all critical care pts) @ -No - Lab Data Result diagrams: 11/26/23 10:41 11/26/23 10:41 Lab Results 11/26/23 11/26/23 11/26/23 Range/Units 10:41 10:41 10:41 WBC 9.9 (3.8-10.6) k/uL RBC 4.98 (3.80-5.40) m/uL Hgb 15.0 (11.4-16.0) gm/dL Hct 43.4 (34.0-46.0) % MCV 87.2 (80.0-100.0) fL MCH 30.1 (25.0-35.0) pg MCHC 34.5 (31.0-37.0) g/dL RDW 13.6 (11.5-15.5) % Plt Count 192 (150-450) k/uL MPV 9.1 Neutrophils % 75 % Lymphocytes % 18 % Monocytes % 4 % Eosinophils % 1 % Basophils % 0 % Neutrophils # 7.4 (1.3-7.7) k/uL Lymphocytes # 1.8 (1.0-4.8) k/uL Monocytes # 0.4 (0-1.0) k/uL Eosinophils # 0.1 (0-0.7) k/uL Basophils # 0.0 (0-0.2) k/uL Sodium 140 (137-145) mmol/L Potassium 3.7 (3.5-5.1) mmol/L Chloride 106 (98-107) mmol/L Carbon Dioxide 26 (22-30) mmol/L Anion Gap 8 mmol/L BUN 10 (7-17) mg/dL Creatinine 0.80 (0.52-1.04) mg/dL Est GFR (CKD-EPI)AfAm >90 (>60 ml/min/1.73 sqM) Est GFR (CKD-EPI)NonAf 81 (>60 ml/min/1.73 sqM) Glucose 114 H (74-99) mg/dL Plasma Lactic Acid Reyes (0.7-2.0) mmol/L Calcium 9.4 (8.4-10.2) mg/dL Total Bilirubin 1.6 H (0.2-1.3) mg/dL AST 19 (14-36) U/L ALT 10 (4-34) U/L Alkaline Phosphatase 101 (38-126) U/L Total Protein 7.1 (6.3-8.2) g/dL Albumin 4.4 (3.5-5.0) g/dL Lipase 83 (23-300) U/L Urine Color Yellow Urine Appearance Clear (Clear) Urine pH 6.0 (5.0-8.0) Ur Specific [place] 1.023 (1.001-1.035) Urine Protein 1+ H (Negative) Urine Glucose (UA) Negative (Negative) Urine Ketones Negative (Negative) Urine Blood Trace H (Negative) Urine Nitrite Negative (Negative) Urine Bilirubin Negative (Negative) Urine Urobilinogen <2.0 (<2.0) mg/dL Ur Leukocyte Esterase Large H (Negative) Urine RBC 6 H (0-5) /hpf Urine WBC 5 (0-5) /hpf Ur Squamous Epith Cells 7 H (0-4) /hpf Urine Bacteria Rare H (None) /hpf Urine Mucus Moderate H (None) /hpf 11/26/23 Range/Units 10:41 WBC (3.8-10.6) k/uL RBC (3.80-5.40) m/uL Hgb (11.4-16.0) gm/dL Hct (34.0-46.0) % MCV (80.0-100.0) fL MCH (25.0-35.0) pg MCHC (31.0-37.0) g/dL RDW (11.5-15.5) % Plt Count (150-450) k/uL MPV Neutrophils % % Lymphocytes % % Monocytes % % Eosinophils % % Basophils % % Neutrophils # (1.3-7.7) k/uL Lymphocytes # (1.0-4.8) k/uL Monocytes # (0-1.0) k/uL Eosinophils # (0-0.7) k/uL Basophils # (0-0.2) k/uL Sodium (137-145) mmol/L Potassium (3.5-5.1) mmol/L Chloride (98-107) mmol/L Carbon Dioxide (22-30) mmol/L Anion Gap mmol/L BUN (7-17) mg/dL Creatinine (0.52-1.04) mg/dL Est GFR (CKD-EPI)AfAm (>60 ml/min/1.73 sqM) Est GFR (CKD-EPI)NonAf (>60 ml/min/1.73 sqM) Glucose (74-99) mg/dL Plasma Lactic Acid Reyes 1.6 (0.7-2.0) mmol/L Calcium (8.4-10.2) mg/dL Total Bilirubin (0.2-1.3) mg/dL AST (14-36) U/L ALT (4-34) U/L Alkaline Phosphatase (38-126) U/L Total Protein (6.3-8.2) g/dL Albumin (3.5-5.0) g/dL Lipase (23-300) U/L Urine Color Urine Appearance (Clear) Urine pH (5.0-8.0) Ur Specific [place] (1.001-1.035) Urine Protein (Negative) Urine Glucose (UA) (Negative) Urine Ketones (Negative) Urine Blood (Negative) Urine Nitrite (Negative) Urine Bilirubin (Negative) Urine Urobilinogen (<2.0) mg/dL Ur Leukocyte Esterase (Negative) Urine RBC (0-5) /hpf Urine WBC (0-5) /hpf Ur Squamous Epith Cells (0-4) /hpf Urine Bacteria (None) /hpf Urine Mucus (None) /hpf Disposition Clinical Impression: Abdominal pain Disposition: ADMITTED IP TO THIS HOSP Condition: Good Instructions (If sedation given, give patient instructions): Abdominal Pain (ED) Is patient prescribed a controlled substance at d/c from ED?: No Referrals: Chaparro Horne MD [Primary Care Provider] - 1-2 days Time of Disposition: 12:07
[2023-11-26 11:15] LABS: Appearance,Urine Clear (Clear); Bacteria,Urine Rare /hpf; Bilirubin,Urine Negative (Negative); Blood,Urine Trace (Negative); Color,Urine Yellow; Glucose,Urine (UA) Negative (Negative); Ketones,Urine Negative (Negative); Leukocyte Esterase,Urine Large (Negative); Mucus,Urine Moderate /hpf; Nitrite,Urine Negative (Negative); Protein,Urine 1+ (Negative); RBC,Urine 6 /hpf (0-5); Specific Gravity,Urine 1.023 (1.001-1.035); Squamous Epithelial Cell,Urine 7 /hpf (0-4); Urobilinogen,Urine <2.0 mg/dL (<2.0); WBC,Urine 5 /hpf (0-5)
--- NOTE | 2023-11-26 11:55 | CT ---
EXAMINATION TYPE: CT abdomen pelvis w con CT DLP: 973.5 mGycm, Automated exposure control for dose reduction was used. DATE OF EXAM: 11/26/2023 11:39 AM COMPARISON: 10/07/2022. CLINICAL INDICATION:Female, 58 years old with history of LLQ pain; LLQ pain TECHNIQUE: Axial CT abdomen pelvis w con;Sagittal and coronal reformats were created on a separate w orkstation. Contrast used:100 mL of Isovue 300 with IV Contrast, (none if empty) Oral contrast used: without Oral Contrast (none if empty) FINDINGS: LOWER CHEST: Unremarkable ABDOMEN LIVER: Unremarkable GALLBLADDER AND BILE DUCTS: Unremarkable. PANCREAS: Unremarkable. SPLEEN: Unremarkable. ADRENAL GLANDS: Unremarkable. KIDNEYS AND URETERS: No evidence of hydronephrosis or renal calculus. The ureters are unremarkable. Right renal cyst. PELVIS BLADDER: Unremarkable REPRODUCTIVE: The uterus is surgically absent. ABDOMEN & PELVIS STOMACH AND BOWEL: No evidence of bowel obstruction. Appendix is normal. PERITONEUM/RETROPERITONEUM: No evidence of pneumoperitoneum or free fluid. VASCULATURE: No evidence of aortic aneurysm. MUSCULOSKELETAL: No acute osseous abnormalities LYMPH NODES: No gross evidence for lymphadenopathy. SOFT TISSUE/ABDOMINAL WALL: Unremarkable IMPRESSION: No acute left lower quadrant process to explain the patient's pain. No obstructive uropathy or renal calculus. No evidence for diverticulitis. The appendix is normal.
[2023-11-26 12:17] VITALS: BP 179/92; PULSE 60; TEMP 98.3
== END 2023-11-26 12:17 | disposition other institution (70) ==
LOC: EC 10:18
DX: N28.1 Cyst of kidney, acquired (principal); Z88.1 Allergy status to other antibiotic agents
CPT/HCPCS: 36415; 80053; 83605; 83690; 85025; 81001; 74177; 99285; 96374; 96361; J1885; Q9967

== ENCOUNTER → 2023-12-04 | Outpatient (CLI) | payer OTHER ==
--- NOTE | 2023-12-06 10:01 | US ---
EXAMINATION TYPE: US abdomen comp/pelvis limited DATE OF EXAM: 12/04/2023 COMPARISON: NONE CLINICAL INDICATION: Female, 58 years old with history of R10.2 PELVIC AND PERINEAL PAIN; R10.9 UNSPE CIFIED; pelvic pain that radiates up to left side EXAM MEASUREMENTS: Liver Length: 11.0 cm Gallbladder Wall: 0.22 cm CBD: 0.55 cm Spleen: 10.7 cm Right Kidney: 9.5 x 4.7 x 4.8 cm Left Kidney: 10.5 x 4.7 x 4.7 cm Pancreas: wnl Liver: heterogeneous Gallbladder: Fundus not visualized due to bowel gasq CBD: wnl Spleen: wnl Right Kidney: inf pole limited due to bowel gas Left Kidney: wnl Upper IVC: wnl Abd Aorta: wnl Bladder: layer of debris seen Bilateral Jets Seen Yes IMPRESSION: 1. Layering debris within the urinary bladder. 2. The liver is slightly heterogenous which may reflect hepatic steatosis.
--- NOTE | 2023-12-06 10:04 | US ---
EXAMINATION TYPE: US pelvic limited DATE OF EXAM: 12/04/2023 COMPARISON: NONE CLINICAL INDICATION: Female, 58 years old with history of R10.2 PELVIC AND PERINEAL PAIN; R10.9 UNSPE CIFIED; pelvic pain. Total hysterectomy in 2014. TECHNIQUE: . Transabdominal sonographic images of the pelvis were acquired. Date of LMP: unknown EXAM MEASUREMENTS: Uterus: Surgically absent Right Ovary: Surgically absent Left Ovary: Surgically absent 1. Uterus: Surgically absent 3. Right Ovary: Surgically absent 4. Left Ovary: Surgically absent 5. Bilateral Adnexa: wnl 6. Posterior cul-de-sac: wnl No discrete abnormality seen. IMPRESSION: Postoperative pelvis.
== END | disposition home or self-care (01) ==
LOC: RADUSWWP 08:57
PROVIDERS: ATTEND Family Medicine
DX: Z48.816 Encounter for surgical aftercare following surgery on the genitourinary system (principal); N20.0 Calculus of kidney
CPT/HCPCS: 76700; 76857

== ENCOUNTER → 2024-10-13 | Outpatient (CLI) | payer OTHER ==
--- NOTE | 2024-10-13 10:22 | MM ---
Reason for Exam: Screening (asymptomatic). Last mammogram was performed 1 year(s) and 1 month(s) ago. Patient History: Menarche at age 10. First Full-Term at age 17. Left ovary removed at age 50. Right ovary removed at age 50. Hysterectomy at age 50. Postmenopausal. Risk Values: Abbey 5 year model risk: 1.1%. NCI Lifetime model risk: 5.2%. Prior Study Comparison: 08/10/2020 Bilateral Screening Mammogram, [facility]. 09/10/2022 Bilateral MG screening mammo w CAD, [facility]. 09/21/2023 Bilateral MG screening mammo w CAD, [facility]. Tissue Density: There are scattered areas of fibroglandular density. Findings: Analyzed By CAD. Right breast: There is no suspicious group of microcalcifications or new suspicious mass. Left breast: There is no suspicious group of microcalcifications or new suspicious mass. Overall Assessment: Negative, BI-RAD 1 Management: Screening Mammogram of both breasts in [address] [facility] will attempt to contact patient to return for supplemental views and ultrasound if indicated. Patient should continue monthly self-breast exams. A clinical breast exam by your physician is recommended on an annual basis. This exam should not preclude additional follow-up of suspicious palpable abnormalities. Note on Abbey scores and lifetime risk: 1. A Abbey score greater than 3% is considered moderate risk. If this is the case, consider specialist referral to assess eligibility for a risk reducing agent. 2. If overall lifetime risk for the development of breast cancer is 20% or higher, the patient may qualify for future screening with alternating mammogram and breast MRI. [facility], , 10/13/2024 10:19 AM. Electronically signed and approved by: Sherman Cornelius DO
== END | disposition home or self-care (01) ==
LOC: RADMAMWWP 09:39
PROVIDERS: ATTEND Family Medicine
DX: Z12.31 Encounter for screening mammogram for malignant neoplasm of breast (principal); R92.323 Mammographic fibroglandular density, bilateral breasts; Z78.0 Asymptomatic menopausal state
CPT/HCPCS: 77067